=== PATIENT | female | born 1965 | race Caucasian/White ===

== ENCOUNTER → 2023-07-18 15:53 | Outpatient (REF) | payer BC, SELFPAY | LOC: RAD 15:53 | PROVIDERS: ATTENDING PHYSICIAN Physician Assistant; FAMILY PHYSICIAN Family Medicine | DX: E04.2 Nontoxic multinodular goiter (principal) | CPT/HCPCS: 76536 ==

== ENCOUNTER → 2023-07-19 07:12 | Outpatient (REF) | payer BC, SELFPAY ==
[2023-07-19 10:06] LABS: % Basophils 0.7 % (0-2); % Eosinophils 5.8 % (0-6); % Immature Granulocytes 0.3 % (0-0.5); % Lymphocytes 32.2 % (20.5-51.1); % Monocytes 7.6 % (1.7-9.3); % Neutrophils 53.4 % (42.2-75.2); Absolute Basophils 0.1 10^3/uL (0-0.2); Absolute Eosinophils 0.4 10^3/uL (0-0.7); Absolute Lymphocytes 2.4 10^3/uL (1.2-3.4); Absolute Monocytes 0.6 10^3/uL (0.1-0.6); Hemoglobin 13.4 g/dL (12.0-16.0); Mean Corp Hgb Conc. 34.4 g/dL (33.0-37.0); Mean Corpuscular Hgb 30.2 pg (27.0-31.0); Mean Platelet Volume 9.5 fL (7.4-10.4); Nucleated Red Blood Cells % 0 %; Platelet Count 317 10^3/uL (130-400); Red Blood Cell Count 4.43 10^6/uL (4.20-5.40); White Blood Cell Count 7.4 10^3/uL (4.8-10.8)
[2023-07-19 10:17] LABS: ALT (SGPT) 29 U/L (0-35); AST (SGOT) 30 U/L (14-36); Albumin 3.9 g/dl (3.5-5.0); Alkaline Phosphatase 78 U/L (38-126); Blood Urea Nitrogen 11 mg/dl (7-17); Calcium 9.3 mg/dl (8.4-10.2); Carbon Dioxide 24 mmol/L (22-30); Chloride 101 mmol/L (98-107); Glucose 207 mg/dl (70-99); HDL Cholesterol 57 mg/dl; LDL Cholesterol, Calculated 32 mg/dl; Sodium 140 mmol/L (135-145); Total Cholesterol 120 mg/dl (50-199); Total Protein 6.6 g/dl (6.3-8.2); Triglyceride 157 mg/dl (10-149); Very Low Density Lipoprotein 31 mg/dl (0-30); eGFR > 60.00
[2023-07-19 12:29] LABS: Glycohemoglobin (HgbA1c) 8.4 % (4.0-5.6)
== END ==
LOC: HWLAB 07:12
PROVIDERS: ATTENDING PHYSICIAN Physician Assistant; FAMILY PHYSICIAN Family Medicine
DX: E11.9 Type 2 diabetes mellitus without complications (principal)
CPT/HCPCS: 36415; 80053; 80061; 83036; 85025

== ENCOUNTER → 2023-10-31 06:40 | Outpatient (REF) | payer BC, SELFPAY ==
[2023-10-31 10:13] LABS: ALT (SGPT) 23 U/L (0-35); AST (SGOT) 24 U/L (14-36); Alkaline Phosphatase 90 U/L (38-126); Blood Urea Nitrogen 16 mg/dl (7-17); Calcium 9.5 mg/dl (8.4-10.2); Carbon Dioxide 26 mmol/L (22-30); Chloride 103 mmol/L (98-107); Glucose 256 mg/dl (70-99); HDL Cholesterol 57 mg/dl; LDL Cholesterol, Calculated 32 mg/dl; Potassium 4.2 mmol/L (3.5-5.1); Sodium 138 mmol/L (135-145); Total Bilirubin 0.8 mg/dl (0.2-1.3); Total Cholesterol 121 mg/dl (50-199); Total Protein 6.7 g/dl (6.3-8.2); Triglyceride 164 mg/dl (10-149); Very Low Density Lipoprotein 32 mg/dl (0-30); eGFR > 60.00
[2023-10-31 10:22] LABS: Hematocrit 39.4 % (37.0-47.0); Hemoglobin 13.8 g/dL (12.0-16.0); Mean Corpuscular Hgb 30.5 pg (27.0-31.0); Mean Platelet Volume 10.1 fL (7.4-10.4); Platelet Count 288 10^3/uL (130-400); Red Blood Cell Count 4.53 10^6/uL (4.20-5.40); Red Cell Dist. Width 12.1 % (11.5-14.5); White Blood Cell Count 7.3 10^3/uL (4.8-10.8)
[2023-10-31 12:02] LABS: Glycohemoglobin (HgbA1c) 12.8 % (4.0-5.6)
== END ==
LOC: HWLAB 06:40
PROVIDERS: ATTENDING PHYSICIAN Physician Assistant; FAMILY PHYSICIAN Family Medicine
DX: E11.65 Type 2 diabetes mellitus with hyperglycemia (principal)
CPT/HCPCS: 36415; 80053; 80061; 83036; 85027

== ENCOUNTER → 2023-12-25 17:24 | Outpatient (REF) | payer BC, SELFPAY ==
[2023-12-25 17:53] LABS: % Eosinophils 4.2 % (0-6); % Immature Granulocytes 0.3 % (0-0.5); % Lymphocytes 43.5 % (20.5-51.1); % Monocytes 7.3 % (1.7-9.3); % Neutrophils 43.7 % (42.2-75.2); Absolute Basophils 0.1 10^3/uL (0-0.2); Absolute Eosinophils 0.3 10^3/uL (0-0.7); Absolute Lymphocytes 3.2 10^3/uL (1.2-3.4); Absolute Monocytes 0.5 10^3/uL (0.1-0.6); Absolute Neutrophils 3.2 10^3/uL (1.4-6.5); Hematocrit 36.3 % (37.0-47.0); Hemoglobin 13.1 g/dL (12.0-16.0); Mean Corp Hgb Conc. 36.1 g/dL (33.0-37.0); Mean Corpuscular Hgb 30.1 pg (27.0-31.0); Mean Corpuscular Volume 83.4 fL (81.0-99.0); Mean Platelet Volume 9.1 fL (7.4-10.4); Nucleated Red Blood Cells % 0 %; Platelet Count 274 10^3/uL (130-400); Red Blood Cell Count 4.35 10^6/uL (4.20-5.40); Red Cell Dist. Width 12.4 % (11.5-14.5); White Blood Cell Count 7.4 10^3/uL (4.8-10.8)
[2023-12-25 18:03] LABS: Urine Bacteria Few (Negative); Urine Mucus Few; Urine Red Blood Cell 0-2 /HPF (0-2)
[2023-12-25 18:05] LABS: ALT (SGPT) 26 U/L (0-35); AST (SGOT) 25 U/L (14-36); Albumin 4.5 g/dl (3.5-5.0); Alkaline Phosphatase 63 U/L (38-126); Blood Urea Nitrogen 12 mg/dl (7-17); Calcium 9.4 mg/dl (8.4-10.2); Carbon Dioxide 28 mmol/L (22-30); Chloride 103 mmol/L (98-107); Glucose 220 mg/dl (70-99); Potassium 4.1 mmol/L (3.5-5.1); Sodium 139 mmol/L (135-145); Total Bilirubin 0.8 mg/dl (0.2-1.3); Total Protein 6.9 g/dl (6.3-8.2); eGFR > 60.00
[2023-12-25 18:36] LABS: TSH 1.74 uIU/ml (0.47-4.68)
[2023-12-26 10:50] LABS: Glycohemoglobin (HgbA1c) 8.4 % (4.0-5.6)
== END ==
LOC: REG 17:24
PROVIDERS: ATTENDING PHYSICIAN Student in an Organized Health Care Education/Training Program
DX: R42 Dizziness and giddiness (principal)
CPT/HCPCS: 70450; 80053; 81015; 83036; 84443; 85025; 87086

== ENCOUNTER 2024-01-13 15:58 | Outpatient (RCR) | payer BC, SELFPAY | END 2024-01-13 23:59 | disposition home or self-care (01) | LOC: RPT 15:58 | PROVIDERS: ATTENDING PHYSICIAN Otolaryngology; FAMILY PHYSICIAN Family Medicine | DX: R42 Dizziness and giddiness (principal); R26.89 Other abnormalities of gait and mobility; R26.81 Unsteadiness on feet; Z73.6 Limitation of activities due to disability | CPT/HCPCS: 97112; 97163; 97530 ==

== ENCOUNTER → 2024-01-16 06:58 | Outpatient (REF) | payer BC, SELFPAY ==
[2024-01-16 10:26] LABS: Urine Albumin Negative (Neg - Trace); Urine Bilirubin Negative (Negative); Urine Character Clear (Clear); Urine Color Yellow; Urine Glucose 2+ (Negative); Urine Ketone Negative (Negative); Urine Leukocyte 1+ (Negative); Urine Nitrite Negative (Negative); Urine Occult Blood Negative (Negative); Urine Specific Gravity 1.025 (<1.030); Urine Urobilinogen Negative (Neg - 1+)
[2024-01-16 11:24] LABS: Urine Bacteria Few (Negative); Urine Red Blood Cell 0-2 /HPF (0-2)
[2024-01-16 12:00] LABS: Vitamin B12 > 1000 pg/ml (239-931)
[2024-01-19 09:41] LABS: Copper, Serum 96.7 ug/dL (80.0-155.0)
== END ==
LOC: HWLAB 06:58
PROVIDERS: ATTENDING PHYSICIAN Student in an Organized Health Care Education/Training Program; FAMILY PHYSICIAN Family Medicine
DX: R27.0 Ataxia, unspecified (principal); R82.90 Unspecified abnormal findings in urine
CPT/HCPCS: 36415; 81003; 81015; 82525; 82607; 84425; 84446; 87086

== ENCOUNTER → 2024-01-30 07:38 | Outpatient (REF) | payer BC, SELFPAY | LOC: EMG 07:38 | PROVIDERS: ATTENDING PHYSICIAN Student in an Organized Health Care Education/Training Program | DX: R27.0 Ataxia, unspecified (principal); E11.9 Type 2 diabetes mellitus without complications; G62.9 Polyneuropathy, unspecified; R20.2 Paresthesia of skin | CPT/HCPCS: 36415; 82140; 95886; 95912 ==

== ENCOUNTER 2024-02-12 15:59 | Outpatient (RCR) | payer BC, SELFPAY | END 2024-02-12 23:59 | disposition home or self-care (01) | LOC: RPT 15:59 | PROVIDERS: ATTENDING PHYSICIAN Otolaryngology; FAMILY PHYSICIAN Family Medicine | DX: R42 Dizziness and giddiness (principal); R26.89 Other abnormalities of gait and mobility; Z73.6 Limitation of activities due to disability | CPT/HCPCS: 97110; 97112; 97530 ==

== ENCOUNTER → 2024-02-14 15:58 | Outpatient (REF) | payer BC, SELFPAY | LOC: MRI 3T 15:58 | PROVIDERS: ATTENDING PHYSICIAN Psychiatry & Neurology Neurology; FAMILY PHYSICIAN Family Medicine | DX: R27.0 Ataxia, unspecified (principal) | CPT/HCPCS: 70553; A9575 ==

== ENCOUNTER → 2024-02-27 16:14 | Outpatient (REF) | payer BC, SELFPAY | LOC: HWWDC 16:14 | PROVIDERS: ATTENDING PHYSICIAN Family Medicine | DX: Z12.31 Encounter for screening mammogram for malignant neoplasm of breast (principal) | CPT/HCPCS: 77063; 77067 ==

== ENCOUNTER 2024-03-11 16:03 | Outpatient (RCR) | payer BC, SELFPAY | END 2024-03-11 23:59 | disposition home or self-care (01) | LOC: RPT 16:03 | PROVIDERS: ATTENDING PHYSICIAN Otolaryngology; FAMILY PHYSICIAN Family Medicine | DX: R42 Dizziness and giddiness (principal); R26.89 Other abnormalities of gait and mobility; R26.81 Unsteadiness on feet; Z73.6 Limitation of activities due to disability | CPT/HCPCS: 97110; 97112; 97530 ==

== ENCOUNTER → 2024-04-08 15:48 | Outpatient (REF) | payer BC, SELFPAY | LOC: HWRCS 15:48 | PROVIDERS: ATTENDING PHYSICIAN Internal Medicine; FAMILY PHYSICIAN Family Medicine | DX: I49.3 Ventricular premature depolarization (principal); I10 Essential (primary) hypertension | CPT/HCPCS: 93306 ==

== ENCOUNTER → 2024-04-09 11:49 | Outpatient (REF) | payer BC, SELFPAY | LOC: DHSLP 11:49 | PROVIDERS: ATTENDING PHYSICIAN Psychiatry & Neurology Neurology; FAMILY PHYSICIAN Family Medicine | DX: G47.30 Sleep apnea, unspecified (principal); R06.83 Snoring | CPT/HCPCS: 95800 ==

== ENCOUNTER 2024-04-09 15:44 | Outpatient (RCR) | payer BC, SELFPAY | END 2024-04-09 23:59 | disposition home or self-care (01) | LOC: RPT 15:44 | PROVIDERS: ATTENDING PHYSICIAN Otolaryngology; FAMILY PHYSICIAN Family Medicine | DX: R42 Dizziness and giddiness (principal); R26.89 Other abnormalities of gait and mobility; R26.81 Unsteadiness on feet; Z73.6 Limitation of activities due to disability | CPT/HCPCS: 97110; 97112; 97530 ==

== ENCOUNTER → 2024-04-14 07:23 | Outpatient (REF) | payer BC, SELFPAY | LOC: DHCBC/DCA 07:23 | PROVIDERS: ATTENDING PHYSICIAN Internal Medicine; FAMILY PHYSICIAN Family Medicine | DX: I49.3 Ventricular premature depolarization (principal); I10 Essential (primary) hypertension | CPT/HCPCS: 78452; 93017; A9500; J2785 ==

== ENCOUNTER → 2024-04-18 08:28 | Outpatient (REF) | payer BC, SELFPAY | LOC: RCS 08:28 | PROVIDERS: ATTENDING PHYSICIAN Internal Medicine; FAMILY PHYSICIAN Family Medicine | DX: I49.3 Ventricular premature depolarization (principal); I10 Essential (primary) hypertension | CPT/HCPCS: 93225; 93226 ==

== ENCOUNTER → 2024-04-20 06:51 | Outpatient (REF) | payer BC, SELFPAY ==
[2024-04-20 09:48] LABS: % Basophils 0.8 % (0-2); % Immature Granulocytes 0.3 % (0-0.5); % Lymphocytes 27.7 % (20.5-51.1); % Monocytes 6.9 % (1.7-9.3); % Neutrophils 59.3 % (42.2-75.2); Absolute Basophils 0.1 10^3/uL (0-0.2); Absolute Eosinophils 0.4 10^3/uL (0-0.7); Absolute Lymphocytes 2.1 10^3/uL (1.2-3.4); Absolute Monocytes 0.5 10^3/uL (0.1-0.6); Absolute Neutrophils 4.5 10^3/uL (1.4-6.5); Hematocrit 37.5 % (37.0-47.0); Hemoglobin 13.1 g/dL (12.0-16.0); Mean Corp Hgb Conc. 34.9 g/dL (33.0-37.0); Mean Corpuscular Hgb 30.7 pg (27.0-31.0); Mean Corpuscular Volume 87.8 fL (81.0-99.0); Mean Platelet Volume 9.5 fL (7.4-10.4); Nucleated Red Blood Cells % 0 %; Platelet Count 247 10^3/uL (130-400); Red Blood Cell Count 4.27 10^6/uL (4.20-5.40); Red Cell Dist. Width 11.9 % (11.5-14.5); White Blood Cell Count 7.6 10^3/uL (4.8-10.8)
[2024-04-20 09:59] LABS: ALT (SGPT) 24 U/L (0-35); AST (SGOT) 21 U/L (14-36); Alkaline Phosphatase 80 U/L (38-126); Blood Urea Nitrogen 14 mg/dl (7-17); Calcium 8.7 mg/dl (8.4-10.2); Carbon Dioxide 27 mmol/L (22-30); Chloride 104 mmol/L (98-107); Glucose 351 mg/dl (70-99); Potassium 4.6 mmol/L (3.5-5.1); Sodium 141 mmol/L (135-145); Total Bilirubin 0.4 mg/dl (0.2-1.3); Total Protein 6.6 g/dl (6.3-8.2); eGFR > 60.00
[2024-04-20 10:49] LABS: Glycohemoglobin (HgbA1c) 8.3 % (4.0-5.6)
== END ==
LOC: HWLAB 06:51
PROVIDERS: ATTENDING PHYSICIAN Physician Assistant; FAMILY PHYSICIAN Family Medicine; REFERRING PHYSICIAN Internal Medicine
DX: E11.65 Type 2 diabetes mellitus with hyperglycemia (principal); I49.3 Ventricular premature depolarization; I10 Essential (primary) hypertension; E78.2 Mixed hyperlipidemia
CPT/HCPCS: 36415; 80053; 83036; 85025

== ENCOUNTER 2024-05-01 12:03 | Day surgery (SDC) | payer BC, SELFPAY ==
[2024-05-01] VITALS (10 sets, daily range): BP systolic 136–199; BP diastolic 63–107
--- NOTE | 2024-05-01 09:43 | HP.FOC2 ---
Focused History & Physical
Chief Complaint
HPI:
Chief Complaint: Abnormal NST
HPI / Indication for Planned Procedure:
59 y/o white female, seen by cardiology for abnormal EKG with frequent PVCs. Complains of some SANDERS and anxiety but denies CP/palps/syncope/edema. NST with reversible lateral perfusion defect, c/w ischemia, EF 55%. 48h Holter monitor w/rare
PVC/PAC/PAT.
Presents for [facility] today.
Relevant Past Medical History: COPD or Pulmonary Disease (Asthma), Diabetes, Hypertension and Other (HLD, Anxiety)
Relevant Social History: Negative
Relevant Family History: Positive for (F- , Prostate Ca, CVA, AAA, DM; B- AAA rupture; B- CVA)
Relevant Past Surgical History: Positive for (Cholecystectomy (2002), Uterine ablation, ovarian cyst removal, bladder sling, Left shoulder RTC repair (2017), Left TRSA (2019), Right TKA (2020), )
Review of Systems
Review of Pertinent Systems: All Systems Negative
Medication
See Medication form for detailed medications: No
Medication List (including Herbals & OTC):
MED LIST FROM [facility] CHART 03/31/24 O/V
alprazolam 1mg po qpm
cetirizine 10 mg tablet 10 mg PO DAILY
glipizide er 20mg po daily
One A Day multivitamin 1 tab po daily
repaglinide 2mg po meals
rosuvastatin 20 mg tablet 20 mg PO QPM
trazodone 100 mg tablet 100 mg PO HS Sleep 04/15/20
valsartan 80mg po daily
Vitamin B12 1000mcg po weekly
Vitamin D3 125mcg po daily
aspirin 81mg po daily
Daily Fiber 2gm po meals
Kupg-Fomp-Gzjtm 6000mcg po daily
Rybelsus 14mg po daily
Medications Reviewed: Yes
Allergies and Reactions
Patient has Allergies: Yes
Noted Allergies and Reactions:
Allergy/AdvReac Type Severity Reaction Status Date / Time
celecoxib [From Celebrex] Allergy Brain Fog Verified 09/20/21 16:25
lisinopril Allergy Cough Verified 09/20/21 16:25
morphine Allergy 'brain fog' Verified 09/20/21 16:25
nitrous oxide [Nitrous Oxide] Allergy difficulty Verified 09/20/21 09:00
breathing
oxycodone Allergy Brain Fog Verified 09/20/21 16:25
soy Allergy stomach Verified 09/20/21 16:25
upset
tramadol Allergy Rash Verified 09/20/21 09:00
grass,weeds,pet dander Allergy runny Uncoded 09/20/21 09:00
nose,
sneezing
Narcotics Allergy 'brain fog' Uncoded 09/20/21 16:25
steroids Allergy Rash / Uncoded 09/20/21 09:00
patient's
skin also
blistered
Pertinent Physical Exam
All Other Systems: Negative
Head/Neck: Normal
Lungs: Normal
Heart: Normal
Abdomen: Normal
Extremities: Normal and Other
Neurological: Normal
Diagnosis / Assessment
NST 04/14/24- Abnormal Lexiscan nuclear stress test with a small area of mildly reduced counts involving the lateral wall from mid to distal ventricle, however, resolves with prone imaging; small area of ischemia versus soft tissue attenuation
tissue attenuation.
Systolic function is normal. The ejection fraction is 55%.
Stress Risk is moderate risk study (1 - 3% [place] or /year) due to pharmacologic agent used.
48 hours HOLTER monitor 04/18/24- NSR, Av 74 bpm. Range 60-115 bpm.
No bradycardia.
Almost no ventricular ectopy, 27 PVCs.
Almost no atrial ectopy, 33 PACs, one atrial couplet and 3 short (3-4 beats)
runs of atrial tachycardia totally just 10 beats.
Plan / Procedure
Abnormal EKG/PVCs
abnormal NST with lateral ischemia
LHC today
aspirin 324mg prior to cath today if not already started
Anesthesia/Sedation to be done by Anesthesia Provider: No
[2024-05-01 12:54] LABS: Glucose - Point of Care 303 mg/dl (70-99)
[2024-05-01 14:11] LABS: ACT-LR - POC 221 Seconds (116-155)
[2024-05-01] MEDS: NSS 1000 IV (14:38)
--- NOTE | 2024-05-01 15:13 | ITS.CL.CATH ---
Senior Manager Creative Services - Catheterization
Cardiac Catheterization
Procedure Report:
CARDIAC CATHETERIZATION REPORT
Date of Procedure: 04/21/2024
Referring: Jeramy Hamm MD
Indication: Frequent PVCs and diabetic with mildly abnormal stress test
�
HEMODYNAMIC DATA
AO: 146/86
LV: 146/24
�
LEFT VENTRICULOGRAPHY: Small focal area of anterolateral hypokinesis with otherwise normal left ventricular wall motion with EF 58%
�
CORONARY ANGIOGRAPHY
Dominance: Right
Left Main: Normal
LAD: 70% mid LAD stenosis distal to D1 with 40% mid LAD stenosis just distal to D2. The remainder of the LAD system has mild luminal disease
Circumflex: The severely calcified circumflex is totally occluded just distal to the takeoff of a twig like OM1 and OM 2 vessels. A large OM 3 fills retrograde via left to left collaterals. A small LPL1, medium to large LPL2 and small to medium
sized LPL3 all fill via right to left collaterals
RCA: Moderate to severe calcification with 20% proximal and focal 70% mid stenoses. There is 60% distal RCA stenosis just proximal to the origin of the large healthy appearing RPDA. The RCA continues on to give rise to a large first right
posterolateral branch and a small terminal second right posterolateral branch
FloWire assessment: At the conclusion of the diagnostic study the patient underwent FloWire assessment of the LAD disease. Heparin was used for anticoagulation. A 5 [place] JL 4 guide catheter was used. A Giga[employer]ix pressure wire was advanced into
the mid to distal LAD. iFR measurements were 0.86, 0.85, and 0.86. These measurements are all consistent with flow-limiting disease. Pullback demonstrated the drop in Pd/Pa to be at the site of the 70% mid LAD stenosis
�
Closure Device: None-the procedure was performed via the right radial artery. The Donta's test was normal prior to the procedure.
�
Radiation (mGy): 377
DAP (cm2.Gy): 24.5
Fluoroscopy time: 4.3 minutes
�
CONCLUSIONS
1:�Systemic hypertension
2:�Small focal area of anterolateral hypokinesis with EF 58%
3. Severe triple-vessel CAD as described
4. Patient was referred for CABG with optimal revascularization to include grafts to the LAD, large OM 3, LPL 2 if able, and RPDA
�
�
Copy to: Edwin Manjarrez MD, PhD, Cullen Vazquez,
�
Jovon Brown MD, FACC, [facility]
[2024-05-01] MEDS: LOPRESSOR 25 MG PO (15:29)
[2024-05-01] MEDS: PRANDIN 0.5 MG PO (15:29)
[2024-05-01] MEDS: GLUCOTROL 15 MG PO (15:29)
== END 2024-05-01 17:19 | disposition home or self-care (01) ==
LOC: CATH 12:03
PROVIDERS: ATTENDING PHYSICIAN Internal Medicine Cardiovascular Disease; FAMILY PHYSICIAN Family Medicine; OTHER PHYSICIAN Internal Medicine
DX: I25.10 Atherosclerotic heart disease of native coronary artery without angina pectoris (principal); R94.39 Abnormal result of other cardiovascular function study; I49.3 Ventricular premature depolarization; I10 Essential (primary) hypertension; E78.5 Hyperlipidemia, unspecified; E11.9 Type 2 diabetes mellitus without complications; J44.9 Chronic obstructive pulmonary disease, unspecified; Z82.3 Family history of stroke; Z79.84 Long term (current) use of oral hypoglycemic drugs; Z79.82 Long term (current) use of aspirin
CPT/HCPCS: 93799; C1894; C1769; 82962; 85347; 93458; Q9967

== ENCOUNTER → 2024-05-13 08:06 | Outpatient (REF) | payer BC, SELFPAY | LOC: HWRAD 08:06 | PROVIDERS: ATTENDING PHYSICIAN Thoracic Surgery (Cardiothoracic Vascular Surgery); FAMILY PHYSICIAN Family Medicine | DX: I25.10 Atherosclerotic heart disease of native coronary artery without angina pectoris (principal); Z01.818 Encounter for other preprocedural examination | CPT/HCPCS: 71250 ==

== ENCOUNTER 2024-05-28 04:57 | Inpatient (IN) | payer BC, SELFPAY ==
[2024-05-26 08:27] VITALS: BMI 37.9
[2024-05-26 09:08] LABS: % Basophils 0.9 % (0-2); % Immature Granulocytes 0.3 % (0-0.5); % Monocytes 6.9 % (1.7-9.3); % Neutrophils 56.9 % (42.2-75.2); Absolute Basophils 0.1 10^3/uL (0-0.2); Absolute Eosinophils 0.4 10^3/uL (0-0.7); Absolute Lymphocytes 1.9 10^3/uL (1.2-3.4); Absolute Monocytes 0.5 10^3/uL (0.1-0.6); Absolute Neutrophils 3.7 10^3/uL (1.4-6.5); Hematocrit 38.9 % (37.0-47.0); Hemoglobin 13.9 g/dL (12.0-16.0); Mean Corp Hgb Conc. 35.7 g/dL (33.0-37.0); Mean Corpuscular Hgb 30.7 pg (27.0-31.0); Mean Corpuscular Volume 85.9 fL (81.0-99.0); Mean Platelet Volume 9.7 fL (7.4-10.4); Nucleated Red Blood Cells % 0 %; Platelet Count 265 10^3/uL (130-400); Red Blood Cell Count 4.53 10^6/uL (4.20-5.40); Red Cell Dist. Width 11.9 % (11.5-14.5); White Blood Cell Count 6.5 10^3/uL (4.8-10.8)
[2024-05-26 09:15] LABS: INR 0.96
[2024-05-26 09:16] LABS: APTT 24.6 Sec (23.4-35.0)
[2024-05-26 09:21] LABS: ALT (SGPT) 27 U/L (0-35); AST (SGOT) 22 U/L (14-36); Albumin 4.3 g/dl (3.5-5.0); Alkaline Phosphatase 88 U/L (38-126); Blood Urea Nitrogen 16 mg/dl (7-17); Calcium 9.1 mg/dl (8.4-10.2); Carbon Dioxide 27 mmol/L (22-30); Chloride 102 mmol/L (98-107); Direct Bilirubin 0.2 mg/dl (0.0-0.4); Estimated Creatinine Clearance 85 ml/min; Glucose 352 mg/dl (70-99); Potassium 4.5 mmol/L (3.5-5.1); Sodium 137 mmol/L (135-145); Total Bilirubin 0.9 mg/dl (0.2-1.3); Total Protein 6.8 g/dl (6.3-8.2); eGFR > 60.00
[2024-05-26 09:44] LABS: Urine Albumin Negative (Neg - Trace); Urine Bilirubin Negative (Negative); Urine Character Clear (Clear); Urine Color Yellow; Urine Glucose 3+ (Negative); Urine Ketone 1+ (Negative); Urine Leukocyte Negative (Negative); Urine Nitrite Negative (Negative); Urine Occult Blood Negative (Negative); Urine Specific Gravity 1.015 (<1.030); Urine Urobilinogen Negative (Neg - 1+)
[2024-05-26 10:21] LABS: Glycohemoglobin (HgbA1c) 10.6 % (4.0-5.6)
--- NOTE | 2024-05-26 10:50 | CM ---
Chart reviewed. Met with the patient in PAT. 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 Patient is going to her sisters house
after surgery until her son comes from [place] on June 04 and then she will return home. Patient's sisters house is a [address]. Reviewed preoperative and postoperative instructions and restrictions, along with showering guidelines. Gave
patient 2 soaps. Patient is agreeable to a home visit by CT Transitional RN. Plan is for the patient to go to her sister's house [address], [place] with CT Transitional RN.
[2024-05-28] VITALS (11 sets, daily range): BP systolic 95–153; BP diastolic 54–79; BMI 37.5
[2024-05-28] MEDS: MAGNESIUM OXIDE 500 MG PO (05:46)
[2024-05-28] MEDS: BACTROBAN 2% OINTMENT 1 APPLIC NASAL ×2 (05:46→19:40)
[2024-05-28] MEDS: PROTONIX 40 MG PO (05:46)
--- NOTE | 2024-05-28 06:01 | W.PN.UPDATE ---
Update Note
Progress Note Update
-preop BB is contraindicated d/t hx of bradycardia after taking Toprol (was discontinued).
[2024-05-28 06:02] LABS: Glucose - Point of Care 331 mg/dl (70-99)
--- NOTE | 2024-05-28 06:05 | PTCARENOTE ---
[facility], clipped, CHG wipes, 2 home showers confirmed. Home medication list reviewed. Admission questions completed. Pre-Op checklist completed. Confirmed all removable items removed. No dentures. Pre OR medications given (See MAR).
Pt states last visit Lopressor adverse reaction with low heart rate. Pt refused Lopressor. Noted new allergy in [employer].
[2024-05-28 07:38] LABS: Urine Albumin Negative (Neg - Trace); Urine Bilirubin Negative (Negative); Urine Character Clear (Clear); Urine Color Yellow; Urine Glucose 3+ (Negative); Urine Ketone 1+ (Negative); Urine Leukocyte Negative (Negative); Urine Nitrite Negative (Negative); Urine Occult Blood Negative (Negative); Urine Urobilinogen Negative (Neg - 1+)
[2024-05-28 07:41] LABS: ACT+ - POC 115 Seconds (82-134)
[2024-05-28 09:00] LABS: B.E. - POC -3.7 mmol/L; Glucose - POC 382 mg/dl (70-99); HCO3 - POC 22 mmol/L (21-28); Hematocrit - POC 35 % PCV (37-47); Hemodilution- POC Yes; Hemoglobin Calculated - POC 11.8; Ionized Calcium - POC 1.14 mmol/L (1.15-1.33); O2 Saturation %Calculated-POC 99.4 % (94-98); PCO2 - POC 43 mmHg (35-48); PO2 - POC 173 mmHg (83-108); POC Comment PRE; Sodium - POC 137 mmol/L (136-145); Specimen Type - POC Arterial; pH - POC 7.32 (7.35-7.45)
--- NOTE | 2024-05-28 09:34 | CM ---
pt in OR today, cm to follow.
[2024-05-28 10:25] LABS: ACT+ - POC 580 Seconds (82-134)
[2024-05-28 10:53] LABS: Glucose - POC 374 mg/dl (70-99); HCO3 - POC 22 mmol/L (21-28); Hematocrit - POC 36 % PCV (37-47); Hemodilution- POC No; Hemoglobin Calculated - POC 12.4; Ionized Calcium - POC 1.17 mmol/L (1.15-1.33); O2 Saturation %Calculated-POC 98.8 % (94-98); PCO2 - POC 50 mmHg (35-48); PO2 - POC 143 mmHg (83-108); POC Comment PRE; Potassium - POC 3.8 mmol/L (3.5-5.1); Sodium - POC 139 mmol/L (136-145); Specimen Type - POC Arterial; pH - POC 7.26 (7.35-7.45)
[2024-05-28 11:03] LABS: ACT+ - POC 517 Seconds (82-134)
[2024-05-28 11:29] LABS: B.E. - POC 0.6 mmol/L; Glucose - POC 309 mg/dl (70-99); HCO3 - POC 27 mmol/L (21-28); Hematocrit - POC 29 % PCV (37-47); Hemodilution- POC Yes; Hemoglobin Calculated - POC 9.8; Ionized Calcium - POC 1.05 mmol/L (1.15-1.33); O2 Saturation %Calculated-POC 99.9 % (94-98); PCO2 - POC 47 mmHg (35-48); PO2 - POC 265 mmHg (83-108); POC Comment CPB; Potassium - POC 4.2 mmol/L (3.5-5.1); Sodium - POC 140 mmol/L (136-145); Specimen Type - POC Arterial; pH - POC 7.36 (7.35-7.45)
[2024-05-28 11:38] LABS: ACT+ - POC 471 Seconds (82-134)
[2024-05-28 11:56] LABS: B.E. - POC -2.1 mmol/L; Glucose - POC 325 mg/dl (70-99); HCO3 - POC 24 mmol/L (21-28); Hematocrit - POC 32 % PCV (37-47); Hemodilution- POC Yes; Hemoglobin Calculated - POC 10.9; Ionized Calcium - POC 1.09 mmol/L (1.15-1.33); O2 Saturation %Calculated-POC 99.8 % (94-98); PCO2 - POC 44 mmHg (35-48); PO2 - POC 260 mmHg (83-108); POC Comment CPB; Potassium - POC 3.5 mmol/L (3.5-5.1); Sodium - POC 141 mmol/L (136-145); Specimen Type - POC Arterial; pH - POC 7.34 (7.35-7.45)
[2024-05-28 12:08] LABS: ACT+ - POC 549 Seconds (82-134)
[2024-05-28 12:52] LABS: B.E. - POC -3.3 mmol/L; Glucose - POC 304 mg/dl (70-99); HCO3 - POC 23 mmol/L (21-28); Hematocrit - POC 32 % PCV (37-47); Hemodilution- POC Yes; Hemoglobin Calculated - POC 10.7; O2 Saturation %Calculated-POC 99.1 % (94-98); PCO2 - POC 46 mmHg (35-48); PO2 - POC 148 mmHg (83-108); POC Comment REWARM; Potassium - POC 3.5 mmol/L (3.5-5.1); Sodium - POC 142 mmol/L (136-145); Specimen Type - POC Arterial; pH - POC 7.31 (7.35-7.45)
[2024-05-28 12:58] LABS: ACT+ - POC 115 Seconds (82-134)
[2024-05-28 13:21] LABS: B.E. - POC -0.1 mmol/L; Glucose - POC 212 mg/dl (70-99); HCO3 - POC 25 mmol/L (21-28); Hematocrit - POC 30 % PCV (37-47); Hemodilution- POC Yes; Hemoglobin Calculated - POC 10.1; Ionized Calcium - POC 1.24 mmol/L (1.15-1.33); O2 Saturation %Calculated-POC 96.5 % (94-98); PCO2 - POC 43 mmHg (35-48); PO2 - POC 88 mmHg (83-108); POC Comment POST; Potassium - POC 2.9 mmol/L (3.5-5.1); Sodium - POC 145 mmol/L (136-145); Specimen Type - POC Arterial; pH - POC 7.38 (7.35-7.45)
--- NOTE | 2024-05-28 13:33 | W.CVOR.SURPR ---
CVOR Surgeon Immed Pre Op
-
I have examined this patient prior to performance of the scheduled procedure.
The patient's condition is unchanged from the time of the dictated/written History and
Physical and the patient is able to undergo the scheduled procedure.
--- NOTE | 2024-05-28 13:34 | W.IMMPOSTOP ---
Addendum entered and electronically signed by Julio Albrecht MD 05/28/24 14:33:
[id number]
Original Note:
Surgical Immed Post Op Note
-
CARDIAC SURGERY OPERATIVE NOTE:
Preoperative Dx:
MVCAD
Postoperative Dx:
Same
Procedures:
1) Median sternotomy
2) Takedown of JODI (narrow pedicle)
3) Endoscopic harvest/prep of L RA
4) Endoscopic harvest/prep of RLE GSV
5) CABG x 3 (JODI to LAD, L RA to OM, GSV to RPDA)
Surgeon:
Julio Albrecht M.D.
Assistants:
Agustin Patel P.A.; assistant professor of chemistry throughout
Daija Panchal, P.A.; endoscopic harvest/prep of L RA; [id number] closure
Manuel Johnson, P.A.; endoscopic harvest/prep of RLE GSV
Anesthesia:
Teddy Lehman M.D. and Zeb Emanuel.N.A.
Perfusion:
Marifer Tobar C.C.P.; XC: 70min, CPB: 115min
Findings:
JODI was healthy conduit w/ thin vuong, ELD 2.00mm w/ very brisk blood flow
L RA was good conduit w/ ELD 3.25mm w/ minor atheromatous disease
GSV was good conduit w/ ELD 3.50mm
LAD was visible on the epicardial surface, ELD 2.75mm w/ slightly thin, but normal vuong at midpoint anastomosis
OM was visible on the epicardial surface, ELD 3.00mm w/ slightly thin, but normal, vuong
PDA was visible on the epicardial surface, ELD 2.75mm w/ slightly thin, but normal vuong
Excellent flow in all grafts on intraoperative transit-time U/S flow probe assessment
BISHOP: LVEF: 65-70% w/o RWMA, normal RV, mild MR, unxcmth-mm-wedc TR
Complications:
None
Transfusions:
None
Implants:
CT x 4 (B/L pleural, inferior mediastinal, superior mediastinal)
Sternal wires x 7
Sternal 'X' plate w/ 8 - 12mm screws
Sternal 'Square' plate w/ 4 - 12mm screws
Condition:
73 isoelectric NSR; 108/60; CVP 18.
GTTS: levophed 12, nicardipine 1, precedex 0.5, insulin 2
Stable/guarded to CVICU
--- NOTE | 2024-05-28 14:10 | W.PN.UPDATE ---
Update Note
Progress Note Update
59 year old female was electively admitted 05/28 for CABG d/t 3VCAD
IV fluids: 1500
U.O.:� 575
Blood:� none
Wires:� none
Gtts:� Levophed @ 12; Cardene @ 1; Precedex @ 0.5; Insulin
Sedatives:� Precedex
�
NEURO: sedated on Precedex, pupils +2mm B/L
RESP: #7OT @24cm> 600/60%/28/12. Lungs clear B/L. 2 mediastinal (XXcc on arrival) and R/L pleural (XXcc on arrival) chest tubes to -20cm suction. Sanguineous drainage
CV: RRR +S1, S2, no S3, no�rub, no murmur. Dressing to median sternotomy. RIJ w/o [place]
ABD: obese, round, soft, no BS
EXT: no edema, +2/4 DP pulses B/L, no femoral bruit, RLE and LUE PATRICIA wraps intact; right radial A-line intact
: Rhoades with clear yellow urine
�
A/P: POD #0 s/p CABG x 3 BRAVO-LAD; Radial-OM; SVG-RPDA
BISHOP: EF�
- wean and extubate
- keep SBP<130, wean Lovophed as able
# CAD
- will require ASA/Plavix, statin, beta-tracey
# HTN
- resume home Valsartan as BP permits
�
# acute surgical blood loss anemia-expected
- trend CBC
�
# T2DM (A1C 10.6)
- insulin infusion x 48h
- Diabetes SURVEILLANCE OPERATOR consult
- on Glipizide, Repaglinide, Rebelsus
- resume Rebelsus when able
�
# Hyperlipidemia
- resume�Crestor 20mg HS
# Obesity (BMI 37.5)
- diabetic, carb controlled diet
- increase caloric expenditure
[2024-05-28 14:11] LABS: Glucose - Point of Care 153 mg/dl (70-99)
[2024-05-28 14:23] LABS: Hematocrit 33.1 % (37.0-47.0); Hemoglobin 11.7 g/dL (12.0-16.0); Platelet Count 223 10^3/uL (130-400)
[2024-05-28 14:24] LABS: B.E. -0.5 mmol/L; HCO3 24.9 mmol/L (21-28); O2 Saturation % 99.2 % (94-98); PCO2 43 mmHg (32-35); PO2 125 mmHg (83-108); Potassium 3.4 mMOL/L (3.5-5.1); Sodium 139 mMOL/L (136-145); pH 7.37 (7.35-7.45)
[2024-05-28 14:28] LABS: O2 Therapy vent
[2024-05-28] MEDS: ANCEF 10 IV ×2 (14:29)
[2024-05-28] MEDS: NSS 500 IV (14:29)
[2024-05-28 14:31] LABS: INR 1.29; PT 16.6 Sec (11.4-14.6)
[2024-05-28] MEDS: KCL 50 IV ×2 (14:32→16:23)
--- NOTE | 2024-05-28 14:37 | W.PN.UPDATE ---
Addendum entered and electronically signed by Christopher Batista MD 05/28/24 14:41:
This note has been entered in the wrong patient.
Please disregard.
Original Note:
Update Note
Progress Note Update
Multiple discussions with interventional radiology regarding this patient.
Echocardiogram noted, hyperdynamic, normal LVEF. RV function is normal but it is dilated. Moderate pulmonary hypertension.
Heart rate has improved down to 84.
Patient is sleepy but arousable. Has been getting narcotics for pain.
Pleuritic type chest pain much better, respiratory effort improved. Clear lung exam without bronchospasm.
Given improvement on hemodynamics, heart rate and clinical situation we have opted to follow her clinically on heparin drip.
If there is any clinical deterioration then we may consider catheter directed lysis.
Dr. Montes updated daughter and son earlier today.
-
Continue end-tidal CO2 monitoring
-
Continue oxygen supplementation. Nonrebreather mask has been discontinued.
-
Additional critical care time 35 minutes
[2024-05-28 14:39] LABS: Blood Urea Nitrogen 16 mg/dl (7-17); Estimated Creatinine Clearance 97 ml/min; Glucose 154 mg/dl (70-99); Magnesium 3.2 mg/dl (1.6-2.3)
--- NOTE | 2024-05-28 14:42 | CON.INTV ---
Consultation
Consultation Request
Date/Time Consultation Requested: 05/28/2024
Date/Time Consultation Performed: 05/28/2024
Requesting Provider: Dr. Albrecht
Performing Provider: Dr. Christopher Montes
Reason for Consultation: Status post coronary artery bypass
Medical History
-
History of Present Illness:
59-year-old woman with past medical history noted. Electively admitted for coronary artery bypass. Surgery underwent without complication on 05/28/2024.
Currently in the critical care unit, intubated on mechanical ventilation. Appears comfortable.
Chest tube in place with minimal bloody drainage. No airleak.
ECW records reviewed.
Past Medical History
Past Medical History: Other (See assessment and plan)
Social History
Tobacco: Non-smoker
Alcohol: None
Personal:
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
Family History
Family History: Unable to Obtain
Allergies / Home Medications
Allergies
Allergy/AdvReac Type Severity Reaction Status Date / Time
cat dander Allergy Rhinitis, Verified 05/22/24 08:54
coughing
celecoxib [From Celebrex] Allergy Brain Fog Verified 05/22/24 08:54
lisinopril Allergy Cough Verified 05/22/24 08:54
morphine Allergy 'brain Verified 05/22/24 08:54
fog'
Hallucinations
nitrous oxide [Nitrous Oxide] Allergy difficulty Verified 05/22/24 08:54
breathing-
Brain Fog
oxycodone Allergy Brain Fog- Verified 05/22/24 08:54
Hallucinations
pollen extracts Allergy Rhinitis, Verified 05/22/24 08:54
coughing
soy Allergy stomach Verified 05/22/24 08:54
upset
tramadol Allergy Rash Verified 05/22/24 08:54
metoprolol [From Lopressor] AdvReac Intermediate Unknown Verified 05/28/24 05:52
Narcotics Allergy 'brain fog' Uncoded 05/22/24 08:54
steroids Allergy Rash / Uncoded 05/22/24 08:54
patient's
skin also
blistered
Home Medications
�Medication �Instructions �Recorded �Confirmed �Last Taken �Type
rosuvastatin 20 mg tablet 20 mg PO QPM High cholesterol 01/12/20 05/28/24 05/27/24 21:00 History
glipizide 5 mg tablet 15 mg PO DAILY Diabetes 02/03/20 05/01/24 05/27/24 07:00 History
20 mg
trazodone 100 mg tablet 100 mg PO HS Sleep 04/15/20 05/28/24 05/27/24 21:00 History
cyanocobalamin (vitamin B-12) 1,000 mcg PO MO Supplement 01/30/21 05/28/24 05/21/24 08:00 History
1,000 mcg tablet
biotin 10,000 mcg capsule 10,000 mcg PO DAILY Supplement 08/25/21 05/22/24 04/30/24 08:00 History
cetirizine 10 mg tablet 10 mg PO DAILY Allergies 08/25/21 05/28/24 05/27/24 07:00 History
cholecalciferol (vitamin D3) 25 3,000 units PO DAILY Supplement 08/25/21 05/28/24 05/21/24 08:00 History
mcg (1,000 unit) tablet
xfcmprqz-lhml-aoce 8 mg-folic 400 1 ea PO DAILY Supplement 08/25/21 05/28/24 05/21/24 08:00 History
mcg-K 50 mcg-lutein 300 mcg tablet
(Centrum Silver Women)
repaglinide 0.5 mg tablet 0.5 mg PO MEALS Diabetes 08/25/21 05/28/24 05/27/24 17:30 History
omega-3s 980 mg-dha 253 mg-epa 647 1 ea PO Q48H Supplement ##0 09/21/21 05/28/24 05/21/24 07:00 Rx
mg-fish oil capsule,delayed release
alprazolam 1 mg tablet 1 mg PO HS 05/01/24 05/28/24 05/26/24 History
1 mg
biotin 10,000 mcg chewable tablet 6,000 mcg PO DAILY 05/01/24 05/28/24 05/21/24 08:00 History
(Hair, Skin and Nails (biotin))
lancets #100 ea 05/01/24 Unknown Rx
melatonin 10 mg-thean 1 tab PO HS 05/01/24 05/28/24 05/27/24 21:00 History
[id number] kpgc-buif-rrv
tablet,immed-ext rel (Sleep3)
nitroglycerin 0.4 mg sublingual 0.4 mg sublingual [id number] PRN 05/01/24 05/28/24 Unknown Rx
tablet chest pain #25 tabs
psyllium husk 0.4 gram capsule 0.4 g PO AC 05/01/24 05/28/24 05/21/24 08:00 History
(Daily Fiber)
valsartan 80 mg tablet 80 mg PO DAILY 05/01/24 05/28/24 05/26/24 08:00 History
semaglutide 14 mg tablet (Rybelsus) 14 mg PO DAILY 05/22/24 05/28/24 05/21/24 08:00 History
Review of Systems
-
Unable to Obtain full review of systems at this time due to: Patient Intubation
Vitals / Labs / Diagnostic Testing
Vital Signs
Temp Pulse Resp BP Pulse Ox
97.0 F 73 14 137/73 96
05/28/24 14:14 05/28/24 05:57 05/28/24 14:14 05/28/24 05:07 05/28/24 14:41
Lab Data
05/28/24 14:09
Laboratory Results
05/28/24
14:09
PT 16.6 H
INR 1.29
APTT 24.0
pH 7.37
pCO2 43 H
pO2 125 H
HCO3 24.9
O2 Delivery Level vent
Microbiology
05/26/24 08:39 Nose MRSA Screen - Final
No Methicillin Resistant Staphylococcus aureus isolated.
Diagnostic Testing:
Physical Exam
-
HEENT: Normocephalic
Cardiovascular: S1/S2
Respiratory: Non-Labored Respirations and Other (Chest tube in place without air leak or excessive drainage.)
GI: Soft and Non Distended
Neurology: Other (Sedated, mechanical ventilation.)
Skin: Warm
General: Comfortable
Assessment
-
59-year-old woman with history of coronary artery disease. Electively admitted for revascularization. Underwent coronary artery bypass 05/28/[address] Albrecht. We were consulted for postoperative ICU management
Status post coronary artery bypass 05/28/[address] Albrecht
Postoperative mechanical ventilation
Postoperative anemia
Condition present prior admission:
Coronary artery disease-preserved ejection fraction. Multivessel coronary artery disease on catheterization 05/01/2024
Hypertension
Type 2 diabetes
Hyperlipidemia
Obese
? Asthma
Osteoarthritis
Allergic rhinitis
Assessment and plan:
She is doing well postop-currently on mechanical ventilation and appears comfortable.
ABG reviewed: Adequate oxygenation and ventilation per
Continue SIMV mode with no change
Spontaneous breathing trial per protocol once sedation wears off.
Anemia noted-no evidence of acute bleeding
Follow H&H serially
Hemodynamics -acceptable, on 8 mics Levophed. Wean off as able
Arterial line in place.
Normal renal function.
Adequate urinary output, continue to follow.
Chest tube with no excessive drainage-no air leak.
Chest x-ray reviewed: With no pneumothorax or fluid collections.
Remain nothing by mouth
Head of the bed elevation
Glycemic control per protocol
DVT prophylaxis when safe from the surgical perspective.
Critical care statement: A total of 31 minutes of critical care time was provided for this patient today. This includes management of unstable vital signs, evaluation of the patient at bedside, reviewing the patient's pertinent medical records
including ventilator settings, arterial blood gases, radiographs, microbiology, laboratory evaluations and discussion with primary team, critical care nursing, and respiratory therapy.
[2024-05-28] MEDS: LEVOPHED 250 IV ×2 (14:59→23:16)
[2024-05-28] MEDS: OFIRMEV 100 IV (15:00)
[2024-05-28] MEDS: NOVOLOG FLEXPEN SC ×2 (15:02→17:32)
[2024-05-28] MEDS: TYLENOL PO (15:02)
[2024-05-28 15:15] LABS: Glucose - Point of Care 152 mg/dl (70-99)
[2024-05-28] MEDS: VERSED 0.5 MG IV ×2 (15:23→16:22)
[2024-05-28] MEDS: ZOFRAN 4 MG IV (15:24)
--- NOTE | 2024-05-28 15:38 | PTCARENOTE ---
rec'd pt this shift mechanically ventilated and sedated. Pt with Rt IJ crodis on Cardene at 1mg/hr, Levo at 12 mcg/min, Insulin and Precedex. Pt with CT X 4, edmondson catheter to gravity drainage. Levo being weaned to keep MAP >65 amd SBP <130. Bear
hugger applied for temp 96.8. Labs sent and replaced as per protocol. CXR done. Pt able to nod head and move all extremities spontanously and to command. Pt NSR on monitor. See worklist for VS/I and O and assessments.
[2024-05-28 16:04] LABS: Glucose - Point of Care 168 mg/dl (70-99)
--- NOTE | 2024-05-28 16:30 | PTCARENOTE ---
Pts family at bedside, updated them on patient status and plan of care. Pt placed on CPAP 5 PS 7 .40% at this time. Pulse ox 95%, TV 350-400, RR 18-20. No resp distress noted.
[2024-05-28] MEDS: PACERONE PO (16:40)
[2024-05-28 16:48] LABS: Glucose - Point of Care 175 mg/dl (70-99)
[2024-05-28 16:57] LABS: B.E. 1.3 mmol/L; HCO3 26.6 mmol/L (21-28); O2 Saturation % 99.6 % (94-98); PCO2 44 mmHg (32-35); PO2 105 mmHg (83-108); pH 7.39 (7.35-7.45)
--- NOTE | 2024-05-28 17:18 | PTCARENOTE ---
ABG obtained and pt extubated to 6l n/coxygen. Pulse ox 97%
--- NOTE | 2024-05-28 17:40 | RESPNOTE ---
17:10, pt extubated to 6L, tolerating well
[2024-05-28] MEDS: NEURONTIN PO ×2 (17:56→22:29)
[2024-05-28] MEDS: TYLENOL 650 MG PO (17:59)
[2024-05-28] MEDS: CRESTOR 20 MG PO (18:00)
[2024-05-28 18:22] LABS: Glucose - Point of Care 194 mg/dl (70-99)
[2024-05-28 18:26] LABS: Hematocrit 34.4 % (37.0-47.0); Platelet Count 244 10^3/uL (130-400)
[2024-05-28] MEDS: DILAUDID 0.5 MG IV ×2 (18:26→21:55)
[2024-05-28] MEDS: TORADOL 15 MG IV (18:42)
--- NOTE | 2024-05-28 18:58 | W.PN.CD ---
Today's Communication / Plan
-
Continue current postop day #0 care.
Wean vasopressors when able.
Impression / Plan
-
Primary coiled coil inspector Dr. Alok Denise
CAD status post CABG x 3 BRAVO-LAD; Radial-OM; SVG-RPDA--05/28/24
-Currently intubated on 12 of Levophed
-Resume aspirin and Plavix when able
-Continue statin
-Beta-tracey when able
Hypertension chronic currently on vasopressor support agents on hold
-Typically on valsartan 80 mg a day.
Hyperlipidemia
-Continue chronic statin therapy
Diabetes 2
-Currently on insulin drip
Prolonged QT interval:
-Avoid additional agents that would prolong QT.
-Monitor on telemetry
-EKG in a.m.
Morbid obesity
Asthma
Physical Exam
Vital Signs/Labs
Vital Signs
Temp Pulse Resp BP Pulse Ox
98.9 F 90 22 137/73 95
05/28/24 18:02 05/28/24 18:00 05/28/24 18:02 05/28/24 05:07 05/28/24 18:02
05/27/24 05/28/24 05/29/24
06:59 06:59 06:59
Actual Weight 100.1 kg 99.1 kg
05/28/24 18:14
05/28/24 14:09
PT 16.6 Sec (11.4-14.6) H 05/28/24 14:09
INR 1.29 05/28/24 14:09
APTT 24.0 Sec (23.4-35.0) 05/28/24 14:09
Magnesium 3.2 mg/dl (1.6-2.3) H 05/28/24 14:09
Physical Exam
Constitutional: Other (Intubated and sedated)
Cardiovascular: Rhythm & rate is regular, Pedal edema is absent, JVD pressure is normal, Systolic murmur absent and Diastolic murmur absent
Respiratory: Respiratory effort normal, Lungs clear to auscul., Wheeze Absent, Crackles Absent and Rhonchi Absent
Neuro/Psych: AO x 3
Data Reviewed
-
Date of Service: May 28, 2024
EKG: Other (Sinus with prolonged QT)
[2024-05-28 19:06] LABS: Glucose - Point of Care 201 mg/dl (70-99)
--- NOTE | 2024-05-28 19:16 | PTCARENOTE ---
Received pt from [facility]. Walking rounds completed. Pt on Levo, Cardene, and insulin. Pt drowsy, oriented X 4. No neuro deficits noted. NSR on monitor. HR 90, B/P 110/59. R radial A-line zeroed and calibrated. DP and PT pulses found with doppler,
bilateral UE pulses weak on palpation. Trace generalized edema noted. R IJ cordis intact, no redness or edema noted. Lungs clear, diminished throughout. POX 95% on 4L. Meds X2, L & R pleural C/T draining serosangious fluid WNL. C/T connected to
suction, orange indicators in windows, no leak, tidaling or crepitus noted. Rhoades intact, draining clear yellow fluid WNL. Hypoactive BS. abdomen rounded, soft, non-tender to touch. Sternal incision, Aquacel C/D/I, C/T dressing C/D/I, LUE lydia
bandage intact, RLE lydia bandage in place. 20g PVA R hand intact. no redness or edema noted. Discussed pain management with patient and plan of care. Pt agrees with plan. Will continue to monitor pt needs.
[2024-05-28] MEDS: ANCEF 5 IV (19:27)
[2024-05-28] MEDS: LOW STRENGTH ASPIRIN 81 MG PO (19:41)
[2024-05-28] MEDS: SENOKOT-S 1 TABLET PO (19:41)
[2024-05-28 20:05] LABS: Glucose - Point of Care 177 mg/dl (70-99)
[2024-05-28] MEDS: NOVOLIN R INSULIN INFUSION 100 IV (21:09)
[2024-05-28] MEDS: TYLENOL 1000 MG PO (21:48)
[2024-05-28 22:00] LABS: Glucose - Point of Care 156 mg/dl (70-99)
[2024-05-28] MEDS: MUCINEX 600 MG PO (22:20)
[2024-05-28] MEDS: LR 250 ML IV (23:00)
--- NOTE | 2024-05-28 23:18 | PTCARENOTE ---
VSS. NSR on monitor with occasional PAC or PVC. HR 79, B/P 95/50 (65). Lactated ringer 250 bolus given. Pt resting in bed. Will continue to monitor pt needs.
[2024-05-29] VITALS (35 sets, daily range): BP systolic 83–127; BP diastolic 50–80; PULSE 90; O2SAT 94–96; BMI 39.4
[2024-05-29 00:05] LABS: Glucose - Point of Care 186 mg/dl (70-99)
[2024-05-29] MEDS: TORADOL 15 MG IV ×2 (00:20→07:01)
[2024-05-29 01:06] LABS: Glucose - Point of Care 162 mg/dl (70-99)
[2024-05-29 02:08] LABS: Glucose - Point of Care 148 mg/dl (70-99)
[2024-05-29] MEDS: LR 250 ML IV (02:10)
[2024-05-29] MEDS: NSS 500 IV (03:01)
[2024-05-29] MEDS: DILAUDID 0.5 MG IV (03:02)
[2024-05-29 03:15] LABS: Glucose - Point of Care 132 mg/dl (70-99)
[2024-05-29 03:33] LABS: Hematocrit 32.1 % (37.0-47.0); Mean Corp Hgb Conc. 34.3 g/dL (33.0-37.0); Mean Corpuscular Hgb 30.3 pg (27.0-31.0); Mean Corpuscular Volume 88.4 fL (81.0-99.0); Mean Platelet Volume 9.7 fL (7.4-10.4); Platelet Count 233 10^3/uL (130-400); Red Blood Cell Count 3.63 10^6/uL (4.20-5.40); Red Cell Dist. Width 12.2 % (11.5-14.5); White Blood Cell Count 19.5 10^3/uL (4.8-10.8)
[2024-05-29] MEDS: CORDARONE 103 MG IV (03:39)
--- NOTE | 2024-05-29 03:41 | ECGCV ---
[facility]PA notified of ECG critical value identified by electronic interpretation on ECG completed on 05/29/24, at 0330.
--- NOTE | 2024-05-29 03:43 | PTCARENOTE ---
NSR on monitor. Morning labs drawn and sent. ECG obtained, critical value, CTPA Tslina aware. Amio bolus ordered and hung (See MAR). Morning care provided. Pt resting in bed. Will continue to monitor pt needs.
[2024-05-29 03:57] LABS: Blood Urea Nitrogen 15 mg/dl (7-17); Carbon Dioxide 25 mmol/L (22-30); Estimated Creatinine Clearance 97 ml/min; Glucose 140 mg/dl (70-99); Magnesium 2.5 mg/dl (1.6-2.3); Potassium 4.8 mmol/L (3.5-5.1); Sodium 141 mmol/L (135-145); eGFR > 60.00
[2024-05-29] MEDS: CARDENE 200 IV (03:59)
[2024-05-29 04:19] LABS: Chloride 108 mmol/L (98-107)
[2024-05-29 04:24] LABS: Glucose - Point of Care 164 mg/dl (70-99)
[2024-05-29] MEDS: ANCEF 5 IV ×2 (04:33→12:11)
[2024-05-29 05:27] LABS: Glucose - Point of Care 143 mg/dl (70-99)
[2024-05-29] MEDS: TYLENOL 1000 MG PO ×3 (06:11→21:25)
--- NOTE | 2024-05-29 06:47 | W.PN.CT ---
Today's Communication / Plan
-
-pod #1
-no significant issues overnight
-drips: Insulin, Cardene @1 for radial graft, Levo 5
-CT outputs: 2 meds 95/150, 2 pleur 75/155 in 12/24 hrs
-wean off Levo, then deline
-continue insulin
-d/c Rhoades
-transition from Cardene to Norvasc for radial graft
-long Qt postop- postop Amio was held - monitor
-pt states that Toprol was stopped in the past d/t bradycardia
-encourage IS, OOB
Assessment / Plan
-
- mv-CAD - s/p CABG x 3 (JODI to LAD, L RA to OM, GSV to RPDA) by Dr. Albrecht on 05/28/24, pod #1
- Intraop BISHOP: LVEF: 65-70% w/o RWMA, normal RV, mild MR, gquwzwq-px-gfkg TR
- HTN/HLD
- Class 2 obesity (BMI 37)
- DM II
- GERD
- OA, s/p b/l TKR
- L RTC repair
- Non-smoker
- Acute postop blood loss anemia - stable without transfusion
- Acute postop atelectasis
- Acute postop hypovolemia with subsequent hypervolemia
- Suspected acute postop pericarditis/+rub
Discussed patient care with: Nursing and Care Team
Subjective
-
Date of Service: May 28, 2024
Objective Data
-
Lab Results
05/28/24 18:14
05/28/24 14:09
PT 16.6 Sec (11.4-14.6) H 05/28/24 14:09
INR 1.29 05/28/24 14:09
APTT 24.0 Sec (23.4-35.0) 05/28/24 14:09
Vital Signs
Vital Signs
Temp Pulse Resp BP Pulse Ox
99.1 F 79 14 137/73 96
05/28/24 23:05 05/28/24 23:00 05/28/24 23:05 05/28/24 05:07 05/28/24 23:05
CT Intake/Output/Weight
05/28/24 05/28/24 05/29/24
06:59 18:59 06:59
Intake Total 354.2 / 905.7 551.5 / 905.7
Output Total 555 / 900 345 / 900
Balance -200.8 / 5.7 206.5 / 5.7
SaO2: 96
Physical Exam
-
General: Awake and AOx3
Cardiovascular: Regular rate & rhythm, No Murmurs and Rub
Respiratory: Decreased Breath Sounds
Sternum: Stable
Incision: Clean, Dry and Dressing Intact
Extremities: Edema +1 (2+ DP pulses. L arm with lydia wrap, warm fingers with intact feeling, good capilary refill)
Abdomen: soft, nontender, nondistended, + decreased bowel sounds.
Data Reviewed
-
Lab Results: Results Reviewed
Medications: Active Meds Reviewed
Chest X-Ray: Report Reviewed and Image Reviewed
ECG: Report Reviewed and Image Reviewed
[2024-05-29 06:57] LABS: Glucose - Point of Care 140 mg/dl (70-99)
[2024-05-29] MEDS: LOPRESSOR PO (07:36)
--- NOTE | 2024-05-29 07:49 | W.PN.CD ---
Addendum entered and electronically signed by Ji Dennis DO 05/29/24 09:11:
Reviewed echo at bedside - done with perflutren.
No regional wall motion appreciated.
Patient reports pain worse with pressure of echo probe, cough and deep inspiration (pleuritic).
Favor a diagnosis of focal pericarditis.
Treat conservatively.
Add colchicine 0.6 mg PO BID if pain continues.
Original Note:
Today's Communication / Plan
-
Urgent echo this morning.
Otherwise routine post operative management.
Impression / Plan
-
Impression/Plan: 59 y/o female with obesity, asthma, HTN, HLD, NIDDM and MV-CAD admitted for elective CABG.
#CAD
-Chronic.
-S/P CABG x 3 (BRAVO-LAD; Radial-OM; SVG-RPDA) with Dr. Albrecht, 05/28/24.
-Extubated.
-EKG shows some DIPAK in the lateral limb leads - this is new from prior EKG.
-Check echo this morning - concern for focal pericarditis vs. graft failure/ischemia.
-Encourage incentive spirometry.
-Wean pressors/inotropes for MAP > 65 mmHg, CI > 1.8 L/min/m2.
-Not quite ready for diuresis.
-Chest tube/pain management per CT surgery.
#Hypertension
-Chronic.
-Currently on vasopressor support - agents on hold.
#Hyperlipidemia
-Chronic.
-Continue statin therapy.
#NIDDM2
-Currently on insulin drip.
-Restart home medications as his DM will permit.
#Prolonged QT interval:
-Avoid additional agents that would prolong QT.
-Monitor on telemetry
-EKG in a.m.
#Morbid obesity
#Asthma
Primary sap data architect Dr. Hamm
Subjective/Interval History:
CABG x3 yesterday.
Extubated yesterday at 17:10.
Weight is up 5 kg from fela.
EKG shows DIPAK in lateral limb leads.
DATA:
Intraprocedural BISHOP, 05/28/2024:
CONCLUSIONS
Normal left ventricular size and systolic function. Stage I diastolic
dysfunction.
Mild mitral regurgitation, mild MAC.
The aorta has atheroma less than 5 mm and moderate calcifications in the arch.
Mild biatrial enlargement.
Trace AI. Trace TR. Trace PI.
POST OPERATIVE FINDINGS
Status post CABG x 3, the left ventricle is hyperdynamic EF 65 to 70% 70 to
75%, no regional wall motion abnormalities seen.
Normal right ventricular size and function.
Mild MR. Trace TR. Trace AI.
The rest of the study is unchanged.
Cardiac Catheterization, 05/01/2024:
CORONARY ANGIOGRAPHY
Dominance: Right
Left Main: Normal
LAD: 70% mid LAD stenosis distal to D1 with 40% mid LAD stenosis just distal to D2. The remainder of the LAD system has mild luminal disease
Circumflex: The severely calcified circumflex is totally occluded just distal to the takeoff of a twig like OM1 and OM 2 vessels. A large OM 3 fills retrograde via left to left collaterals. A small LPL1, medium to large LPL2 and small to medium
sized LPL3 all fill via right to left collaterals
RCA: Moderate to severe calcification with 20% proximal and focal 70% mid stenoses. There is 60% distal RCA stenosis just proximal to the origin of the large healthy appearing RPDA. The RCA continues on to give rise to a large first right
posterolateral branch and a small terminal second right posterolateral branch
FloWire assessment: At the conclusion of the diagnostic study the patient underwent FloWire assessment of the LAD disease. Heparin was used for anticoagulation. A 5 Kiswahili JL 4 guide catheter was used. A MYOMO pressure wire was advanced into
the mid to distal LAD. iFR measurements were 0.86, 0.85, and 0.86. These measurements are all consistent with flow-limiting disease. Pullback demonstrated the drop in Pd/Pa to be at the site of the 70% mid LAD stenosis.
Physical Exam
Vital Signs/Labs
Vital Signs
Temp Pulse Resp BP Pulse Ox
37.4 C 90 18 113/70 94
05/29/24 05:57 05/29/24 07:30 05/29/24 07:30 05/29/24 06:01 05/29/24 07:30
05/27/24 05/28/24 05/29/24
11:59 11:59 11:59
Actual Weight 99.1 kg 104.1 kg
05/29/24 03:19
05/29/24 03:19
PT 16.6 Sec (11.4-14.6) H 05/28/24 14:09
INR 1.29 05/28/24 14:09
APTT 24.0 Sec (23.4-35.0) 05/28/24 14:09
Magnesium 2.5 mg/dl (1.6-2.3) H 05/29/24 03:19
Physical Exam
Constitutional: No acute distress and Comfortable
EENT: Anicteric and Moist mucous membranes
Cardiovascular: Rhythm & rate is regular, Pedal edema is absent, JVD pressure is normal and S1S2 is normal
Respiratory: Respiratory effort normal and Other (Decreased throughout.)
GI: Soft, Distention absent, Flat, Non tender and Normal bowel sounds
Neuro/Psych: AO x 3
Data Reviewed
-
Date of Service: May 29, 2024
Medical Decision Making: Reviewed Test Results, Tests Ordered, Independent Historian Assessment and Test Interpretation
EKG: Tracing Personally Visualized and interpreted and Report Reviewed by me
Echo: Report Reviewed by me
X-Ray/CT/US/MRI/NUC/PET: Image Personally Visualized and interpreted and Report Reviewed by me
Medical Tests (PFT, Pathology etc): Report Reviewed by me
Labs: Labs Reviewed by me
Old Records: Reviewed
[2024-05-29 07:50] LABS: Glucose - Point of Care 186 mg/dl (70-99)
[2024-05-29] MEDS: ZOFRAN 4 MG IV (08:00)
[2024-05-29 08:06] LABS: Ionized Calcium 1.07 mMOL/L (1.15-1.33)
--- NOTE | 2024-05-29 08:15 | PTCARENOTE ---
Assumed care of patient. Walking rounds complete with previous RN. Pt assessed while she was lying in bed. Pt alert and oriented x4. Pt c/o 4/10 sternal pain and nausea-see MAR. BOSTON with equal strength in all extremities. NSR on tele with rates in
the 80s-90s. BP supported with levophed to maintain MAP >65, titrating as able. Cardene at set rate of 1mg/hr for radial graft. Right radial and left ulnar pulse weakly palpable. Bilateral DPPT pulses present via doppler. Generalized +1 edema
throughout. +Rub. CVP 8. POX 94% on 4L NC, titrated to 2L NC, POX remained 94%. Lungs diminished throughout. IS encouraged-1000mL achieved. +productive cough with clear sputum. Mediastinal chest tubes x2 y-sited to 1 atrium to -20cm suction draining
serosanguineous fluid. Right and Left pleural chest tubes y-sited to 1 atrium to -20cm suction draining sanguinous fluid. No air leaks, tidaling, crepitus noted. Abdomens soft, round, nontender. Hypoactive BS. +gas per patient. +belching. Rhoades
intact draining clear yellow urine. Sternal incision covered with antibiotic dressing, CDI. Chest tube sites cleansed and dressing changed. Left radial artery harvest site covered with PATRICIA-CDI. Right groin puncture site approximated. Right SVG
harvest site covered with PATRICIA-CDI. Right IJ cordis with Kenyon intact. Right radial urben intact, positional. All lines flushed, leveled, zeroed. Right hand PIV intact infusing insulin per Critical Care Glycemic Protocol. See MAR for medication
administration. See worklist for complete nursing assessment. Plan of care reviewed and patient in agreement.
[2024-05-29] MEDS: CALCIUM GLUCONATE 100 IV ×2 (08:16→22:40)
[2024-05-29] MEDS: LOW STRENGTH ASPIRIN 81 MG PO (08:58)
[2024-05-29] MEDS: PROTONIX 40 MG PO (08:58)
[2024-05-29] MEDS: LIDOCAINE 4% PATCH 1 PATCH TOPICAL (08:58)
[2024-05-29] MEDS: PACERONE 200 MG PO ×3 (08:58→21:26)
[2024-05-29] MEDS: PLAVIX 75 MG PO (08:58)
[2024-05-29] MEDS: FEOSOL 325 MG PO (08:58)
[2024-05-29] MEDS: VITAMIN C 500 MG PO (08:58)
[2024-05-29] MEDS: SENOKOT-S 1 TABLET PO ×2 (08:58→19:53)
[2024-05-29] MEDS: FLEXERIL 5 MG PO ×2 (08:59→18:12)
[2024-05-29] MEDS: NORVASC PO (08:59)
[2024-05-29] MEDS: MUCINEX 600 MG PO ×2 (09:00→19:53)
[2024-05-29] MEDS: BACTROBAN 2% OINTMENT 1 APPLIC NASAL ×2 (09:01→19:57)
[2024-05-29] MEDS: NEURONTIN 100 MG PO ×3 (09:11→21:28)
[2024-05-29] MEDS: NORVASC 2.5 MG PO (09:14)
[2024-05-29 09:24] LABS: Glucose - Point of Care 132 mg/dl (70-99)
[2024-05-29] MEDS: NOVOLOG FLEXPEN 4 UNITS SC ×2 (09:31→13:20)
--- NOTE | 2024-05-29 11:00 | PTCARENOTE ---
Orders received to erica/rob miranda & hugo. Orders completed, pt tolerated.
[2024-05-29 11:11] LABS: Glucose - Point of Care 110 mg/dl (70-99)
[2024-05-29 12:15] LABS: Glucose - Point of Care 89 mg/dl (70-99)
--- NOTE | 2024-05-29 12:30 | PTCARENOTE ---
Pt reassessed. A&Ox4. NSR on tele with rates in the 80s. BP 101/62 off gtts. POX 97% on 2L NC, attempted RA, POX 88%, resumed 2L NC. CT output WNL. Rhoades continues to drain clear yellow urine. Surgical sites stable. Right IJ cordis and Right hand
PIV intact. Pt assisted OOB with 2 assist to chair. Pt tolerated.
[2024-05-29 13:20] LABS: Glucose - Point of Care 143 mg/dl (70-99)
--- NOTE | 2024-05-29 14:00 | PTCARENOTE ---
PATRICIA bandages removed from left arm and right leg. All incisions approximated with skin glue with ecchymosis surrounding incisions. Now PEARL TECHNICIAN.
--- NOTE | 2024-05-29 14:01 | PN.DE.MGMTRT ---
Insulin Management
- -
05/29/2024 Diabetes Management Consult
Patient admitted for CABG, PMH HTN, asthma, HLD, GERD, anxiety, osteoarthritis, type 2 diabetes. A1C on admission 10.6%, cr .7, eGFr >60.
Patient is awake alert and oriented, able to discuss diabetes management. States she sees Malik Peña but will see Dr. Murray in July.
POD 1 will continue glycemic protocol. When ready to transition start lantus @ hs 14 units with glipizide and repaglinide (home meds) and start Farxiga.
Diabetes History
- -
Type of Diabetes: 2
Pre-Admission Diabetes Regimen
05/28/24 05/29/24
14:09 03:19
Creatinine 0.7 0.7
Lab Results
Hemoglobin A1c 10.6 % (4.0-5.6) H 05/26/24 08:39
Insulin Pump Settings
IP Diabetes Regimen
05/28/24 05/28/24 05/28/24
14:09 15:14 16:02
Glucose 154 H
POC Glucose 153 H 152 H 168 H
05/28/24 05/28/24 05/28/24
16:48 18:21 19:05
Glucose
POC Glucose 175 H 194 H 201 H
05/28/24 05/28/24 05/29/24
20:03 21:51 00:03
Glucose
POC Glucose 177 H 156 H 186 H
05/29/24 05/29/24 05/29/24
00:03 01:05 02:05
Glucose
POC Glucose 186 H 162 H 148 H
05/29/24 05/29/24 05/29/24
03:08 03:19 04:22
Glucose 140 H
POC Glucose 132 H 164 H
05/29/24 05/29/24 05/29/24
05:26 06:56 09:21
Glucose
POC Glucose 143 H 140 H 132 H
05/29/24 05/29/24 05/29/24
11:10 12:10 13:18
Glucose
POC Glucose 110 H 89 143 H
Meal type: Breakfast
Amount consumed: 50%
Patient Education
[2024-05-29] MEDS: LR 250 IV ×2 (14:17→16:15)
[2024-05-29 14:27] LABS: Glucose - Point of Care 185 mg/dl (70-99)
--- NOTE | 2024-05-29 14:52 | W.PN.INTV ---
Today's Communication / Plan
Recommendations
Continue postoperative care
Follow chest tube output
Follow hemoglobin
Colchicine started for possible focal pericarditis
Increase mobility as able
Sign off
Assessment
-
59-year-old woman with history of coronary artery disease. Electively admitted for revascularization. Underwent coronary artery bypass 05/28/[address] Albrecht. We were consulted for postoperative ICU management
Status post coronary artery bypass 05/28/[address] Albrecht
Postoperative mechanical ventilation
Postoperative anemia
Condition present prior admission:
Coronary artery disease-preserved ejection fraction. Multivessel coronary artery disease on catheterization 05/01/2024
Hypertension
Type 2 diabetes
Hyperlipidemia
Obese
? Asthma
Osteoarthritis
Allergic rhinitis
Assessment and plan:
Postoperative day 1
Extubated 05/28/2024
Doing well
Anemia noted-no evidence of acute bleeding
leukocytosis likely reactive. Idatil-[id number]-[id number] afebrile
Follow H&H serially
Echocardiogram this morning without acute abnormality
Possible pericarditis-colchicine started.
Hemodynamics -stable off vasopressors
Normal renal function.
Adequate urinary output, continue to follow.
Chest tube with no excessive drainage-no air leak.
Chest x-ray reviewed: With no pneumothorax or fluid collections. Minimal bibasal atelectasis
Advance diet
Head of the bed elevation
Glycemic control per protocol
DVT prophylaxis when safe from the surgical perspective.
Patient has been transferred to telemetry
No additional critical care recommendations. Sign off
Subjective Dataa
Subjective Data
Date of Service:
Date of Service: May 29, 2024
Chief Complaint: Twisting Frame Operator Follow Up (Status postcoronary artery bypass)
Subjective:
No overnight events
Hemodynamically stable
Pain is controlled
Denies shortness of breath at rest
Review of Systems
General: Fever (n)
Cardiopulmonary: Dyspnea (n) and Cough (n)
GI: Abdominal Pain (n) and Nausea (n)
Objective Data
Data Reviewed
Vital Signs / I&O / Oxygen:
Vital Signs
Temp Pulse Resp BP Pulse Ox
98.1 F 92 16 104/60 93
05/29/24 12:00 05/29/24 14:19 05/29/24 13:00 05/29/24 14:19 05/29/24 14:00
Intake and Output
05/28/24 05/29/24 05/30/24
06:59 06:59 06:59
Intake Total 1766.6 / 1766.6 726.8 / 726.8
Output Total 1340 / 1340 405 / 405
Balance 426.6 / 426.6 321.8 / 321.8
SaO2 93
Nasal Cannula flow liters per 2
minute
Physical Exam
General: Comfortable
HEENT: Normocephalic
Cardiovascular: S1-S2
Respiratory: Non-Labored Respirations and Chest Tube (No excessive drainage or air leak)
GI: Soft and Non Distended
Neurology: Awake and Alert
Labs/Micro/Reports
Lab Data
05/29/24 03:19
05/29/24 03:19
Laboratory Results
05/28/24
16:46
pH 7.39
pCO2 44 H
pO2 105
HCO3 26.6
O2 Delivery Level
Microbiology
05/26/24 08:39 Nose MRSA Screen - Final
No Methicillin Resistant Staphylococcus aureus isolated.
--- NOTE | 2024-05-29 15:13 | CM ---
priced farxiga with pts insurance co- farxiga is $35/month, lantus is non formulary- semglee is covered at $35/month. pt agreeable to this rowe
--- NOTE | 2024-05-29 15:43 | W.PN.ANS.POP ---
Anesthesia Post Operative
- Anesthesia Post Op Note
Vital Signs Stable-See Nursing Note: Yes
Airway Patent: Yes
Adequate Pain Control: Yes
Change in Mental Status: No
Current Postoperative Nausea & Vomiting: No
Anesthesia Complications: No
General Anesthetic Recall: No
Unplanned Admission: No
Post Op Hydration Adequate: Yes
- -
Pt OOB to chair, resting comfortably. Spoke with RN, VSS and patient doing well.
[2024-05-29 15:48] LABS: Glucose - Point of Care 145 mg/dl (70-99)
--- NOTE | 2024-05-29 16:00 | PTCARENOTE ---
Pt reassessed. Pt rates sternal pain 5/10, intermittently falls asleep in the chair. NSR on tele with rates in the 70s-80s. BP 89/52. POX 93% on RA. Surgical sites stable. CT output WNL. No other acute changes from previous assessment.
[2024-05-29] MEDS: NOVOLIN R INSULIN INFUSION 100 IV (16:15)
--- NOTE | 2024-05-29 16:15 | PTCARENOTE ---
CT CHANNEL MARKETING COORDINATOR notified of continued low UO. 500ml LR bolus total given per orders.
[2024-05-29 17:18] LABS: Glucose - Point of Care 117 mg/dl (70-99)
[2024-05-29] MEDS: CRESTOR 20 MG PO (17:18)
[2024-05-29] MEDS: ProAmatine 5 MG PO (17:18)
[2024-05-29] MEDS: NOVOLOG FLEXPEN 5 UNITS SC (17:18)
--- NOTE | 2024-05-29 19:30 | PTCARENOTE ---
[facility]. Walking rounds completed. Pt assessment completed in bed. Pt is AAOx4, no neuro deficits noted. NSR on monitor HR 84,
B/P 106/68. R radial and L ulnar pulse weak on palpation . Bilateral DP pulses weak on palpation, bilateral PT pulses present with doppler. Generalized +1 edema throughout. Lungs diminished throughout. POX 92% on RA, IS encouraged-1000mL achieved.
Frequent productive cough, clear sputum. Mediastinal chest tubes x2, Right and Left pleural chest tubes, y-sited to 1 atrium to -20cm suction draining sanguinous fluid. No air leaks, tidaling, crepitus noted. Rhoades intact. Draining clear yellow
fluid. NBS, abdomen soft, non-tender to touch. Sternal incision Aquacel, CDI. Chest tube sites dressing C/D/I. Left radial artery harvest site WILLIE, approximated with surgical glue present. Right groin puncture site approximated. Right SVG harvest
site WILLIE, approximated with surgical glue present. Right IJ cordis intact. 20g PVA R hand intact infusing insulin per Critical Care Glycemic Protocol. See MAR for medication administration. Plan of care reviewed with pt. Pt agrees with plan. Will
continue to monitor pt needs.
[2024-05-29] MEDS: LOPRESSOR 12.5 MG PO (19:54)
[2024-05-29] MEDS: XANAX 0.5 MG PO (21:25)
[2024-05-29 22:20] LABS: Glucose - Point of Care 83 mg/dl (70-99)
[2024-05-29 22:20] LABS: Glucose - Point of Care 166 mg/dl (70-99)
[2024-05-29 22:23] LABS: Ionized Calcium 1.03 mMOL/L (1.15-1.33)
--- NOTE | 2024-05-29 22:30 | PTCARENOTE ---
Pt b/p 87/50 on monitor. CTPA Tslina made aware. Ical drawn, sent, and
--- NOTE | 2024-05-29 22:31 | PTCARENOTE ---
Pt b/p 87/50. CTPA Mikey made aware. Ical drawn and sent. Calcium Gluconate ordered and hung (see MAR). Will continue to monitor pt needs.
[2024-05-29 23:28] LABS: Glucose - Point of Care 132 mg/dl (70-99)
[2024-05-30] VITALS (33 sets, daily range): BP systolic 86–137; BP diastolic 51–93; PULSE 78; O2SAT 92–94; BMI 39.3
[2024-05-30 01:11] LABS: Glucose - Point of Care 100 mg/dl (70-99)
[2024-05-30 03:05] LABS: Glucose - Point of Care 84 mg/dl (70-99)
--- NOTE | 2024-05-30 04:42 | PTCARENOTE ---
NSR on monitor HR 86, B/P 102/56. Am labs drawn and sent. ECG obtained. Morning care provided. Pt c/o cough and sore throat. CTPA Tslina aware. Pt resting in bed. Will continue to monitor pt needs.
[2024-05-30] MEDS: FLEXBUMIN 50 IV ×3 (04:46→19:27)
[2024-05-30 04:56] LABS: Hematocrit 28.4 % (37.0-47.0); Hemoglobin 9.4 g/dL (12.0-16.0); Mean Corp Hgb Conc. 33.1 g/dL (33.0-37.0); Mean Corpuscular Hgb 30.8 pg (27.0-31.0); Mean Corpuscular Volume 93.1 fL (81.0-99.0); Mean Platelet Volume 10.2 fL (7.4-10.4); Platelet Count 165 10^3/uL (130-400); Red Blood Cell Count 3.05 10^6/uL (4.20-5.40); Red Cell Dist. Width 12.9 % (11.5-14.5); White Blood Cell Count 15.2 10^3/uL (4.8-10.8)
[2024-05-30] MEDS: FLEXERIL 5 MG PO (05:08)
[2024-05-30] MEDS: TYLENOL 1000 MG PO ×3 (05:08→21:21)
[2024-05-30 05:13] LABS: Blood Urea Nitrogen 25 mg/dl (7-17); Calcium 8.1 mg/dl (8.4-10.2); Carbon Dioxide 27 mmol/L (22-30); Chloride 103 mmol/L (98-107); Estimated Creatinine Clearance 69 ml/min; Glucose 108 mg/dl (70-99); Magnesium 2.2 mg/dl (1.6-2.3); Potassium 4.8 mmol/L (3.5-5.1); Sodium 136 mmol/L (135-145); eGFR > 60.00
[2024-05-30] MEDS: ANESTHETIC LOZENGE 1 LOZENGE PO ×3 (05:19→14:10)
[2024-05-30 05:23] LABS: Glucose - Point of Care 153 mg/dl (70-99)
--- NOTE | 2024-05-30 07:05 | PTCARENOTE ---
Afib on tele. EKG obtained to confirm. CT MILKING WORKER notified. Orders for amio bolus & amio gtt. Administered per orders. Pt asymptomatic.
[2024-05-30] MEDS: CORDARONE 103 MG IV (07:19)
--- NOTE | 2024-05-30 07:19 | W.PN.CT ---
Addendum entered and electronically signed by Julio Albrecht MD 05/30/24 08:07:
I saw and examined the patient.
The PA's note was reviewed and I agree with the note.
Comment:
AF converted to NSR - continue amio protocol
Continue midodrine - hold BB - follow BP
D/C CTs
D/C edmondson
OOB/IS/ambulate
Diuresis
Original Note:
Today's Communication / Plan
-
-pod #2
-went into a-fib 120s-130s at ~7am- tx with Amio bolus and drip
-remains hypotensive-started on Midodrine 5 tid. Repleted Ca last night
-weight is up 11 lbs from preop. Difficult to diurese d/t low BP. Started 25% Albumin x3
-suspected pericarditis. Echo is normal 05/29
-holding Trazodone while on Amio d/t prolonged Qt- follow ECG
-monitor rhythm on BB (hx of bradycardia with Toprol, no pw)
-transition off iv insulin as directed by DM
-CT output: 2 meds 75/170, 2 pleur 65/255 in 12/24 hrs
-current meds (ASA, Plavix, Crestor, Midodrine, Amio, Norvasc for radial graft, Feosol, Protonix). Will hold BB d/t low BP
-appreciate everyone's input
Assessment / Plan
-
- mv-CAD - s/p CABG x 3 (JODI to LAD, L RA to OM, GSV to RPDA) by Dr. Albrecht on 05/28/24, pod #2
- Intraop BISHOP: LVEF: 65-70% w/o RWMA, normal RV, mild MR, vbjqmwm-fw-yaal TR
- HTN/HLD
- Class 2 obesity (BMI 37)
- DM II
- GERD
- OA, s/p b/l TKR
- L RTC repair
- Non-smoker
- Acute postop blood loss anemia - stable without transfusion
- Acute postop atelectasis
- Acute postop brief runs of a-fib/pat on pod #0 - tx with Amio bolus
- Acute postop a-fib 130s on 05/30 at 7am - tx with Amio bolus and drip
- Acute postop prolonged Qt - improved. Holding Trazodone
- Acute postop hypovolemia with subsequent hypervolemia
- Suspected acute postop pericarditis/+rub
- Acute postop hypotension d/t vasoplegia, requiring Midodrine
- Postop Echo 05/29/24:
Normal biventricular size and systolic function. LVEF 60-65%.
No regional wall motion abnormalities.
No significant valvular disease.
No pericardial effusion.
No change compared to prior TTE on 04/08/2024.
Discussed patient care with: Nursing and Care Team
Subjective
-
Date of Service: May 30, 2024
Objective Data
-
PT 16.6 Sec (11.4-14.6) H 05/28/24 14:09
INR 1.29 05/28/24 14:09
APTT 24.0 Sec (23.4-35.0) 05/28/24 14:09
Vital Signs
Vital Signs
Temp Pulse Resp BP Pulse Ox
98.0 F 69 16 97/52 95
05/30/24 01:00 05/30/24 02:00 05/30/24 02:00 05/30/24 02:00 05/30/24 02:00
CT Intake/Output/Weight
05/29/24 05/29/24 05/30/24
06:59 18:59 06:59
Intake Total 1412.4 / 1766.6 1297.8 / 1509.1 211.3 / 1509.1
Output Total 785 / 1340 530 / 880 350 / 880
Balance 627.4 / 426.6 767.8 / 629.1 -138.7 / 629.1
SaO2: 95
Physical Exam
-
General: Awake and AOx3
Cardiovascular: Regular rate & rhythm, No Murmurs and Rub
Respiratory: Decreased Breath Sounds
Sternum: Stable
Incision: Clean, Dry and Dressing Intact
Extremities: Edema +2
Abdomen: soft, nontender, + bowel sounds
Data Reviewed
-
Lab Results: Results Reviewed
Medications: Active Meds Reviewed
Chest X-Ray: Report Reviewed and Image Reviewed
ECG: Report Reviewed and Image Reviewed
[2024-05-30 07:26] LABS: Glucose - Point of Care 124 mg/dl (70-99)
[2024-05-30] MEDS: CORDARONE 518 MG IV (07:43)
--- NOTE | 2024-05-30 07:55 | PTCARENOTE ---
Pt converted to NSR. BP 97/58.
--- NOTE | 2024-05-30 08:30 | PTCARENOTE ---
Resumed care of patient. Pt assessed while she was lying in the bed. Pt alert and oriented x4. Pt denies shortness of breath, and nausea. Rates sternal pain 3/10. BOSTON with equal strength in all extremities. NSR on tele with rates in the 70s-80s. BP
100/53. +Rub. Right radial, left ulnar, and bilateral DP pulses palpable. +1 generalized edema. POX 93% Lungs diminished throughout. IS encouraged-750mL achieved. Mediastinal chest tubes x2 y-sited to 1 atrium to -20cm suction draining
serosanguineous fluid. Right and left pleural chest tubes y-sited to 1 atrium to -20cm suction draining serosanguineous fluid. no air leaks, tidaling, crepitus noted. Abdomen soft, round, obese, nontender. Hypoactive BS. Rhoades catheter intact
draining adequate amounts of reggie urine. Sternal incision covered with Aquacel-CDI. Chest tube dressing CDI. Left radial incision approximated with skin glue, ecchymotic. Right groin incision approximated, right SVG incision approximated. Right IJ
cordis intact infusing amiodarone gtt and KVO. Right hand PIV infusing insulin gtt per Critical Care Glycemic. See MAR for medication administration. See worklist for complete nursing assessment. Plan of care reviewed and patient in agreement.
[2024-05-30] MEDS: LIDOCAINE 4% PATCH 1 PATCH TOPICAL (08:58)
[2024-05-30] MEDS: FEOSOL 325 MG PO (08:58)
[2024-05-30] MEDS: NEURONTIN 100 MG PO ×3 (08:58→21:21)
[2024-05-30] MEDS: NOVOLOG FLEXPEN 4 UNITS SC ×3 (08:58→17:17)
[2024-05-30] MEDS: PLAVIX 75 MG PO (08:58)
[2024-05-30] MEDS: SENOKOT-S 1 TABLET PO ×2 (08:58→19:26)
[2024-05-30] MEDS: PACERONE 200 MG PO ×3 (08:58→21:22)
[2024-05-30] MEDS: VITAMIN C 500 MG PO (08:58)
[2024-05-30] MEDS: MUCINEX 600 MG PO ×2 (08:58→19:26)
[2024-05-30] MEDS: ProAmatine 5 MG PO ×2 (08:58→12:30)
[2024-05-30] MEDS: NORVASC 2.5 MG PO (08:58)
[2024-05-30] MEDS: BACTROBAN 2% OINTMENT 1 APPLIC NASAL ×2 (08:59→19:27)
[2024-05-30] MEDS: PROTONIX 40 MG PO (08:59)
[2024-05-30] MEDS: LOW STRENGTH ASPIRIN 81 MG PO (08:59)
[2024-05-30 09:02] LABS: Glucose - Point of Care 98 mg/dl (70-99)
--- NOTE | 2024-05-30 10:00 | PTCARENOTE ---
Chest tubes d/c per orders. Sutures tied, dressing changed. Pt tolerated. Rhoades d/c per orders, pt tolerated. DTV 1600. Pt assisted OOB to chair with 2 assist, tolerated. standing weight obtained.
[2024-05-30 11:10] LABS: Glucose - Point of Care 227 mg/dl (70-99)
[2024-05-30] MEDS: NSS IV (12:21)
[2024-05-30 12:29] LABS: Glucose - Point of Care 133 mg/dl (70-99)
[2024-05-30] MEDS: FARXIGA 10 MG PO (12:30)
[2024-05-30] MEDS: NOVOLIN R INSULIN INFUSION 100 IV (12:30)
--- NOTE | 2024-05-30 12:30 | PTCARENOTE ---
Pt reassessed. NSR on tele with rates in the 70s. BP 96/60. POX 96% on RA. Surgical sites stable. Pt resting in the chair.
[2024-05-30 14:32] LABS: Glucose - Point of Care 134 mg/dl (70-99)
--- NOTE | 2024-05-30 16:30 | PTCARENOTE ---
Pt reassessed. NSR with rates in the 70s. BP 107/57. POX 94% on RA. Surgical sites stable. Assisted OOB and ambulated in the lee 250'. Pt tolerated. Insulin gtt continues.
[2024-05-30 16:33] LABS: Glucose - Point of Care 136 mg/dl (70-99)
[2024-05-30] MEDS: CRESTOR 20 MG PO (17:22)
[2024-05-30] MEDS: ProAmatine PO (17:24)
[2024-05-30 18:34] LABS: Glucose - Point of Care 135 mg/dl (70-99)
--- NOTE | 2024-05-30 19:00 | PTCARENOTE ---
assumed care of patient @ 1900. received pt sitting in chair, AOx3. VSS on RA. SR on tele, +1 anasarca. Lungs clear, occasional productive cough with white sputum. BS active, belly soft, nontender. voiding in bathroom. Sugical incisions all CDI. R
hand PIV and R IJ cordis patent. insulin per protocol and amio at 0.5. assisted pt to bathroom and then to bed, resting comfortably with call taveras within reach .
[2024-05-30] MEDS: LOPRESSOR 12.5 MG PO (19:26)
[2024-05-30 21:03] LABS: Glucose - Point of Care 76 mg/dl (70-99)
[2024-05-30] MEDS: XANAX 1 MG PO (21:22)
[2024-05-30] MEDS: LANTUS 0.14 UNITS SC (22:03)
[2024-05-30 22:13] LABS: Glucose - Point of Care 126 mg/dl (70-99)
--- NOTE | 2024-05-30 23:00 | PTCARENOTE ---
insulin drip turned off per order. pt resting comfortably with call taveras within reach .
[2024-05-30 23:04] LABS: Glucose - Point of Care 131 mg/dl (70-99)
[2024-05-31] VITALS (10 sets, daily range): BP systolic 100–136; BP diastolic 58–74; BMI 39.4
[2024-05-31] MEDS: ROXICODONE 5 MG PO (03:28)
[2024-05-31] MEDS: ANESTHETIC LOZENGE 1 LOZENGE PO (03:42)
[2024-05-31 03:57] LABS: Hematocrit 26.9 % (37.0-47.0); Hemoglobin 8.8 g/dL (12.0-16.0); Mean Corp Hgb Conc. 32.7 g/dL (33.0-37.0); Mean Corpuscular Hgb 30.2 pg (27.0-31.0); Mean Corpuscular Volume 92.4 fL (81.0-99.0); Mean Platelet Volume 9.8 fL (7.4-10.4); Platelet Count 152 10^3/uL (130-400); Red Blood Cell Count 2.91 10^6/uL (4.20-5.40); Red Cell Dist. Width 12.5 % (11.5-14.5); White Blood Cell Count 13.5 10^3/uL (4.8-10.8)
--- NOTE | 2024-05-31 04:18 | PTCARENOTE ---
Labs drawn and sent . pt resting comfortably, no change in assessment .
[2024-05-31 04:22] LABS: Blood Urea Nitrogen 21 mg/dl (7-17); Calcium 7.6 mg/dl (8.4-10.2); Carbon Dioxide 21 mmol/L (22-30); Chloride 105 mmol/L (98-107); Estimated Creatinine Clearance 87 ml/min; Glucose 174 mg/dl (70-99); Potassium 4.1 mmol/L (3.5-5.1); Sodium 136 mmol/L (135-145); eGFR > 60.00
--- NOTE | 2024-05-31 04:45 | W.PN.CT ---
Addendum entered and electronically signed by Julio Albrecht MD 05/31/24 08:46:
I saw and examined the patient.
The PA's note was reviewed and I agree with the note.
Comment:
Maintained NSR. OOB. IS. Ambulate.
Continue diuresis today
D/C planning for 1-2 days
Original Note:
Today's Communication / Plan
-
-pod #3
-maintained SR overnight
-HD stable
-weight is up 11 lbs from preop. Diuresis
-suspected pericarditis. Echo is normal 05/29
-holding Trazodone while on Amio d/t prolonged Qt- follow ECG
-monitor rhythm on BB (hx of bradycardia with Toprol, no pw)
-current meds (ASA, Plavix, Crestor, Midodrine, Amio, Norvasc for radial graft, Feosol, Protonix). Will hold BB d/t low BP
Assessment / Plan
-
- mv-CAD - s/p CABG x 3 (JODI to LAD, L RA to OM, GSV to RPDA) by Dr. Albrecht on 05/28/24, pod #3
- Intraop BISHOP: LVEF: 65-70% w/o RWMA, normal RV, mild MR, [id number] TR
- HTN/HLD
- Class 2 obesity (BMI 37)
- DM II
- GERD
- OA, s/p b/l TKR
- L RTC repair
- Non-smoker
- Acute postop blood loss anemia - stable without transfusion
- Acute postop atelectasis
- Acute postop brief runs of a-fib/pat on pod #0 - tx with Amio bolus
- Acute postop a-fib 130s on 12 at 7am - tx with Amio bolus and drip
- Acute postop prolonged Qt - improved. Holding Trazodone
- Acute postop hypovolemia with subsequent hypervolemia
- Suspected acute postop pericarditis/+rub
- Acute postop hypotension d/t vasoplegia, requiring Midodrine
- Postop Echo 05/29/24:
Normal biventricular size and systolic function. LVEF 60-65%.
No regional wall motion abnormalities.
No significant valvular disease.
No pericardial effusion.
No change compared to prior TTE on 04/08/2024.
Subjective
Procedure
05/28: CABGx3 (BRAVO to LAD, RA to OM, SVG to RPDA) by Dr. Albrecht
-
Date of Service: May 31, 2024
Objective Data
-
Lab Results
05/31/24 03:52
05/31/24 03:52
PT 16.6 Sec (11.4-14.6) H 05/28/24 14:09
INR 1.29 05/28/24 14:09
APTT 24.0 Sec (23.4-35.0) 05/28/24 14:09
Vital Signs
Vital Signs
Temp Pulse Resp BP Pulse Ox
98.8 F 65 16 105/64 95
05/31/24 04:13 05/31/24 04:00 05/31/24 04:13 05/31/24 03:00 05/31/24 04:13
CT Intake/Output/Weight
05/30/24 05/30/24 05/31/24
06:59 18:59 06:59
Intake Total 302.0 / 1714.8 798.1 / 1044.4 246.3 / 1044.4
Output Total 590 / 1155 385 / 1185 800 / 1185
Balance -288.0 / 559.8 413.1 / -140.6 -553.7 / -140.6
SaO2: 95
Physical Exam
-
General: AOx3
Cardiovascular: Regular rate & rhythm
Respiratory: Decreased Breath Sounds
Sternum: Stable
Incision: Dressing Intact
Extremities: Edema +1
[2024-05-31] MEDS: TYLENOL 1000 MG PO ×3 (06:45→21:44)
[2024-05-31] MEDS: NSS 500 IV (06:46)
--- NOTE | 2024-05-31 07:45 | PTCARENOTE ---
Resumed care of patient. Walking rounds completed with previous RN. Pt assessed while she was sitting in the chair. Pt alert and oriented x4. Pt rates sternal pain 3/10. Denies nausea and shortness of breath. BOSTON with equal strength, independent in
the room. NSR on tele with rates in the 70s. BP 117/69. Heart tones audible. Right radial, left ulnar and b/l DP pulses palpable. +1 generalized edema noted. POX 94% on RA. Lungs diminished in the bases. IS encouraged 1000ml achieved. No cough
noted. Abdomen soft, round, obese, nontender. +BS. Pt voiding reggie urine in the toilet. Tolerating diet. Sternal incision covered with antimicrobial dressing. Old chest tube sites covered, CDI. Left radial harvest incision approximated with skin
glue, ICE CUTTER. Right groin and right SVG harvest site approximated with skin glue, WILLIE. Right IJ cordis intact. Right hand PIV intact. See MAR for medication administration. See worklist for complete nursing assessment. Plan of care reviewed and patient
in agreement.
[2024-05-31 07:59] LABS: Glucose - Point of Care 181 mg/dl (70-99)
[2024-05-31] MEDS: CALCIUM GLUCONATE 100 IV (07:59)
[2024-05-31] MEDS: PLAVIX 75 MG PO (07:59)
[2024-05-31] MEDS: MAGNESIUM OXIDE 500 MG PO ×2 (07:59→20:10)
[2024-05-31] MEDS: NEURONTIN 100 MG PO ×3 (07:59→21:44)
[2024-05-31] MEDS: LASIX 40 MG IV ×2 (07:59→15:42)
[2024-05-31] MEDS: SENOKOT-S 1 TABLET PO (07:59)
[2024-05-31] MEDS: BACTROBAN 2% OINTMENT 1 APPLIC NASAL ×2 (07:59→20:10)
[2024-05-31] MEDS: VITAMIN C 500 MG PO (07:59)
[2024-05-31] MEDS: MUCINEX 600 MG PO ×2 (08:00→20:10)
[2024-05-31] MEDS: FEOSOL 325 MG PO (08:00)
[2024-05-31] MEDS: PROTONIX 40 MG PO (08:00)
[2024-05-31] MEDS: LOW STRENGTH ASPIRIN 81 MG PO (08:00)
[2024-05-31] MEDS: NORVASC 2.5 MG PO (08:00)
[2024-05-31] MEDS: LOPRESSOR 12.5 MG PO ×2 (08:00→20:10)
[2024-05-31] MEDS: FARXIGA 10 MG PO (08:00)
[2024-05-31] MEDS: LIDOCAINE 4% PATCH 1 PATCH TOPICAL (08:00)
[2024-05-31] MEDS: PRANDIN 2 MG PO ×3 (08:00→17:45)
[2024-05-31] MEDS: PACERONE 200 MG PO ×3 (08:00→21:44)
[2024-05-31] MEDS: NOVOLOG FLEXPEN SC (08:16)
[2024-05-31 11:42] LABS: Glucose - Point of Care 353 mg/dl (70-99)
--- NOTE | 2024-05-31 11:49 | PTCARENOTE ---
Discharge order received. Sternal dressing d/c, incision approximated with no drainage. Epicardial v-wire cut by CT DETAIL ASSEMBLER. Showering instructions provided.
[2024-05-31] MEDS: NOVOLOG FLEXPEN-MODERATE RESISTANCE 9 UNITS SC (12:23)
--- NOTE | 2024-05-31 13:00 | PTCARENOTE ---
Pt reassessed. NSR on tele with rates in the 70s. BP 136/72. POX 97% on RA. Surgical sites stable. Right IJ cordis d/c. Old chest tube sites uncovered, no drainage. Pt resting in bed.
--- NOTE | 2024-05-31 15:58 | PTCARENOTE ---
Pt reassessed. NSR on tele with rates in the 70s. BP 136/67. POX 94% on RA. Surgical sites stable. +BM. continues to void clear yellow urine in the toilet. Ambulating in the lee and room independently.
[2024-05-31] MEDS: NOVOLOG FLEXPEN 10 UNITS SC (17:43)
[2024-05-31] MEDS: NOVOLOG FLEXPEN-HIGH RESISTANCE 7 UNITS SC (17:45)
[2024-05-31] MEDS: CRESTOR 20 MG PO (17:45)
[2024-05-31 17:47] LABS: Glucose - Point of Care 292 mg/dl (70-99)
--- NOTE | 2024-05-31 20:00 | PTCARENOTE ---
Assumed care of the patient at 1900. Patient ambulating in halls, OOB in chair, AOx3. NSR on tele, rates 70's, + pulses throughout, trace generalized edema. Lungs clear on RA, satting 94-97%, occasional nonproductive cough. +BS, abdomen round, BM
today, good appetite, tolerating diet. Voiding in the toilet. Midsternal Aquacel, R groin site intact, L arm and RLE incisions CDI METAL WIRE TECHNICIAN with Dermabond. PIV x1 #20 in R hand INT. Call within reach, encouraged patient to make needs known, updated on
POC, in agreement, assessment of needs ongoing.
[2024-05-31] MEDS: SENOKOT-S PO (20:11)
[2024-05-31] MEDS: LANTUS 0.16 UNITS SC (21:44)
[2024-05-31 21:45] LABS: Glucose - Point of Care 220 mg/dl (70-99)
[2024-05-31] MEDS: XANAX 1 MG PO (22:07)
[2024-06-01] VITALS (7 sets, daily range): BP systolic 95–147; BP diastolic 55–80; PULSE 78; O2SAT 97; BMI 38.2
--- NOTE | 2024-06-01 | PTCARENOTE ---
No changes, VSS, patient sleeping between care. Call taveras within reach.
[2024-06-01 03:53] LABS: Glucose - Point of Care 136 mg/dl (70-99)
--- NOTE | 2024-06-01 04:12 | PTCARENOTE ---
Assessment unchanged, patient sleeping between care, no acute issues; labs drawn and sent, VSS.
--- NOTE | 2024-06-01 04:17 | W.PN.CT ---
Today's Communication / Plan
-
-pod #4
-no acute events overnight, maintained NSR.
-HD stable
-weight is up from preop. Diuresed yesterday for 3.5L UO
-K 3.4 this morning, repleted with 60meq KCl
-suspected pericarditis. Echo is normal 05/29
-holding Trazodone while on Amio d/t prolonged Qtc
-monitor rhythm on BB (hx of bradycardia with Toprol, no pw)
-current meds (ASA, Plavix, Crestor, Midodrine, Amio, Norvasc for radial graft, Feosol, Protonix). Will hold BB d/t
Assessment / Plan
-
- mv-CAD - s/p CABG x 3 (JODI to LAD, L RA to OM, GSV to RPDA) by Dr. Albrecht on 05/28/24, pod #4
- Intraop BISHOP: LVEF: 65-70% w/o RWMA, normal RV, mild MR, svgmchh-vq-vhim TR
- HTN/HLD
- Class 2 obesity (BMI 37)
- DM II
- GERD
- OA, s/p b/l TKR
- L RTC repair
- Non-smoker
- Acute postop blood loss anemia - stable without transfusion
- Acute postop atelectasis
- Acute postop brief runs of a-fib/pat on pod #0 - tx with Amio bolus
- Acute postop a-fib 130s on 12 at 7am - tx with Amio bolus and drip
- Acute postop prolonged Qt - improved. Holding Trazodone
- Acute postop hypovolemia with subsequent hypervolemia
- Suspected acute postop pericarditis/+rub
- Acute postop hypotension d/t vasoplegia, requiring Midodrine
- Postop Echo 05/29/24:
Normal biventricular size and systolic function. LVEF 60-65%.
No regional wall motion abnormalities.
No significant valvular disease.
No pericardial effusion.
No change compared to prior TTE on 04/08/2024.
Subjective
Procedure
05/28: CABGx3 (BRAVO to LAD, RA to OM, SVG to RPDA) by Dr. Albrecht
-
Date of Service: June 01, 2024
Objective Data
-
Lab Results
06/01/24 04:30
06/01/24 04:07
PT 16.6 Sec (11.4-14.6) H 05/28/24 14:09
INR 1.29 05/28/24 14:09
APTT 24.0 Sec (23.4-35.0) 05/28/24 14:09
Vital Signs
Vital Signs
Temp Pulse Resp BP Pulse Ox
97.9 F 66 18 123/80 96
06/01/24 03:55 06/01/24 03:54 06/01/24 03:55 06/01/24 03:54 06/01/24 03:55
CT Intake/Output/Weight
05/31/24 05/31/24 06/01/24
06:59 18:59 06:59
Intake Total 246.3 / 1044.4 366.7 / 366.7
Output Total 800 / 1185 3175 / 3575 400 / 3575
Balance -553.7 / -140.6 -2808.3 / -3208.3 -400 / -3208.3
SaO2: 96
Physical Exam
-
General: AOx3
Cardiovascular: Regular rate & rhythm
Respiratory: Decreased Breath Sounds
Sternum: Stable
Incision: Clean, Dry and Intact
Extremities: Edema +1
[2024-06-01 04:29] LABS: Blood Urea Nitrogen 26 mg/dl (7-17); Calcium 7.9 mg/dl (8.4-10.2); Carbon Dioxide 30 mmol/L (22-30); Chloride 101 mmol/L (98-107); Estimated Creatinine Clearance 69 ml/min; Glucose 137 mg/dl (70-99); Magnesium 2.1 mg/dl (1.6-2.3); Potassium 3.4 mmol/L (3.5-5.1); Sodium 139 mmol/L (135-145); eGFR > 60.00
[2024-06-01 04:47] LABS: Hematocrit 28.8 % (37.0-47.0); Hemoglobin 9.9 g/dL (12.0-16.0); Mean Corp Hgb Conc. 34.4 g/dL (33.0-37.0); Mean Corpuscular Hgb 30.3 pg (27.0-31.0); Mean Corpuscular Volume 88.1 fL (81.0-99.0); Mean Platelet Volume 9.6 fL (7.4-10.4); Platelet Count 214 10^3/uL (130-400); Red Blood Cell Count 3.27 10^6/uL (4.20-5.40); Red Cell Dist. Width 12.2 % (11.5-14.5); White Blood Cell Count 10.3 10^3/uL (4.8-10.8)
[2024-06-01] MEDS: KCL 60 MEQ PO (05:52)
[2024-06-01] MEDS: TYLENOL 1000 MG PO ×2 (05:53→13:27)
[2024-06-01] MEDS: ANESTHETIC LOZENGE 1 LOZENGE PO (05:57)
[2024-06-01 07:23] LABS: Glucose - Point of Care 139 mg/dl (70-99)
[2024-06-01] MEDS: NOVOLOG FLEXPEN-HIGH RESISTANCE 1 UNITS SC (07:37)
[2024-06-01] MEDS: NOVOLOG FLEXPEN 8 UNITS SC ×2 (07:37→11:46)
[2024-06-01] MEDS: VITAMIN C 500 MG PO (07:38)
[2024-06-01] MEDS: FEOSOL 325 MG PO (07:38)
[2024-06-01] MEDS: PRANDIN 2 MG PO ×2 (07:38→11:46)
[2024-06-01] MEDS: LOW STRENGTH ASPIRIN 81 MG PO (07:38)
[2024-06-01] MEDS: FARXIGA 10 MG PO (07:38)
[2024-06-01] MEDS: NEURONTIN 100 MG PO (07:38)
[2024-06-01] MEDS: MAGNESIUM OXIDE 500 MG PO (07:38)
[2024-06-01] MEDS: PLAVIX 75 MG PO (07:38)
[2024-06-01] MEDS: PROTONIX 40 MG PO (07:38)
[2024-06-01] MEDS: LOPRESSOR 12.5 MG PO (07:38)
[2024-06-01] MEDS: NORVASC 2.5 MG PO (07:38)
[2024-06-01] MEDS: PACERONE 200 MG PO (07:38)
[2024-06-01] MEDS: MUCINEX 600 MG PO (07:38)
[2024-06-01] MEDS: LIDOCAINE 4% PATCH TOPICAL (07:39)
[2024-06-01] MEDS: SENOKOT-S PO (07:40)
[2024-06-01] MEDS: BACTROBAN 2% OINTMENT 1 APPLIC NASAL (07:41)
--- NOTE | 2024-06-01 07:58 | PTCARENOTE ---
Received pt from shift supervisor melting RN; pt AAOx3 and resting comfortably in bed; NSR on monitor and VSS; PIV x1 patent; Lungs diminished; IS to 1000; positive bowel sounds; pt voiding yellow urine; +1 generalized edema; palpable pulses throughout; all
surgical sites C/D/I; pt ambulating in room; see nursing documentation for further details.
[2024-06-01] MEDS: SENOKOT-S 1 TABLET PO (08:09)
--- NOTE | 2024-06-01 11:20 | PTCARENOTE ---
Pt ambulated hallway and did stairs with cardiac rehab; pt showered self with CHG soap; pvc monitor reapplied; awaiting discharged paperwork.
--- NOTE | 2024-06-01 11:26 | CM ---
Chart reviewed. Patient is independent of ADLS, lives alone in a 2 ST, 3 DIPAK, 0 DME. Patient will be going to her sister house until 06/[address] [place] [address]. Plan is for the patient to go to her sister house with CT
Transitional RN.
[2024-06-01] MEDS: NOVOLOG FLEXPEN-HIGH RESISTANCE 4 UNITS SC (11:46)
[2024-06-01 11:49] LABS: Glucose - Point of Care 215 mg/dl (70-99)
[2024-06-01] MEDS: NSS IV (12:02)
--- NOTE | 2024-06-01 12:42 | PTCARENOTE ---
Assessment unchanged; NSR on monitor and VSS; pt ambulating in room and hallways without difficulties.
--- NOTE | 2024-06-01 14:04 | PN.DE.MGMTRT ---
Insulin Management
- -
06/01/2024 Diabetes Management Consult
Patient admitted for CABG, PMH HTN, asthma, HLD, GERD, anxiety, osteoarthritis, type 2 diabetes. A1C on admission 10.6%, cr .7, eGFr >60.
Patient is awake alert and oriented, able to discuss diabetes management. States she sees Marylou Peña but will see Dr. Murray in July.
POD 4 Transitioned to lantus @ hs and novolog AC with repaglinide 2 mg AC and Farxiga 10 mg daily. Glucose pre meal > 200, will increase AC novolog to 10 units. HS lantus 16 units. Will stop repaglinide now, continue Farxiga 10 mg daily.
RX for Semglee and novolog, farxiga and pen needles in ambulatory orders.
Patients glucose monitor is generic, she has insurance. She can have new meter, test strips and lancets at no cost if she orders through [facility]. Encouraged patient to reach out to for assistance with ordering through [facility]
She is not happy about taking insulin but it is the best regimen at this time. Encouraged to make an appt. with her primary and Marylou but she 'does not like MARYLOU'
Encouraged her to make an appointment with someone in that office.
Diabetes History
- -
Type of Diabetes: 2 requiring insulin
Pre-Admission Diabetes Regimen
06/01/24
04:07
Creatinine 1.0
Lab Results
Hemoglobin A1c 10.6 % (4.0-5.6) H 05/26/24 08:39
Insulin Pump Settings
IP Diabetes Regimen
05/31/24 05/31/24 06/01/24
17:37 21:43 03:52
Glucose
POC Glucose 292 H 220 H 136 H
06/01/24 06/01/24 06/01/24
04:07 07:20 11:44
Glucose 137 H
POC Glucose 139 H 215 H
Meal type: Lunch
Meal type: Breakfast
Amount consumed: 100%
Amount consumed: 100%
Patient Education
--- NOTE | 2024-06-01 16:08 | PTCARENOTE ---
Patient discharged home - taken by wheelchair to sister's car. Patient states full understanding of discharge instructions and has no further questions at this time. Importance of taking medications as prescribed stressed by RN. Telemetry and PIV
access removed. VSS. Patient belongings taken with patient and sister.
--- NOTE | 2024-06-01 17:27 | W.DCSUMMARY ---
Discharge Summary
Discharge Data
Date of Admission: 05/28/24
Date of Discharge: 06/01/24
Total time spent discharging patient (in min): 45
-
Pending Results: No
Hospital Course
Primary care physician:
Dr. Cullen Vazquez
Outpatient agriscience instructor:
Dr. Hamm
Inpatient consultants:
CBC, aircraft machinist, DM management MULTIPLE DRUM SANDER HELPER
Procedures:
1. Coronary artery bypass x3
Primary Diagnosis:
1. Multivessel coronary artery disease
Secondary Diagnoses:
1. Hypertension
2. Type 2 diabetes
3. Hyperlipidemia
4. Postoperative atrial fibrillation
5. Postoperative fluid overload
6. Osteoarthritis
HPI: 59-year-old female with known coronary disease presented electively on 05/28 for coronary artery bypass with Dr. Albrecht.
Hospital course:
Patient was electively admitted on 05/28 for a coronary artery bypass with Dr. Albrecht. Postoperatively she returned to the CVICU on Levophed, insulin, Precedex, and Cardene infusions. Patient had a prolonged QTc so amiodarone was initially held
and Precedex was weaned off and patient was extubated by 1710. On 12 postoperative day 1 Levophed was weaned off Norvasc was started and Cardene was weaned off for radial artery spasm protection. Patient was also started on Toradol given her
pericardial rub. T BISHOP did not show any wall motion abnormalities. She was also started on midodrine later in the day for low blood pressures. On 05/30 postoperative day #2, patient converted into atrial fibrillation with a rapid ventricular
response with heart rate in the 140s. She was started on an amiodarone bolus and infusion. Shortly after medications patient converted back into sinus rhythm. Chest tubes and Rhoades was removed later in the day. To transition off insulin infusion
patient was started on Farxiga, sliding scale insulin, and Lantus at night. On 05/31 postoperative day #3, patient's Cordis was removed. Started on Prandin and a high dose sliding scale insulin. She was diuresed with 40 of Lasix twice daily with
adequate urine output. On 06/01 postoperative day 4, her insulin dose was adjusted and she was deemed stable for discharge home. 2 view chest x-ray was stable.
Home medication changes:
See below
Discharge Plan
-
Patient Disposition: Home (Routine Discharge)
Discharge Diagnosis/Procedures: CABG x3 and sternal plating
Condition: Good
Diet: 2 Gram Sodium
Activity: No strenuous activity
Driving Restrictions: Not until seen by your Dr
Bathing Restrictions: OK to Shower
Other Services: Cardiac Rehab
Specialty Instructions: Weigh Daily- Call MD for wt gain/loss 3 lbs overnight/5 lbs in 1 week
Activity Restrictions/Additional Instructions:
ACTIVITY:
-No strenuous activity: no heavy lifting, pushing, pulling anything over 15 pounds for one month
-continue to use stairs as tolerated
DRIVING RESTRICTIONS:
-No driving for one month or until approved by your surgeon
WOUND CARE:
-Shower daily. Use soap & water.
-No lotions, creams or powders on incision area.
DIET:
-continue a low fat/low cholesterol diet.
-IF you are diabetic, continue carb controlled diet.
CARDIAC REHAB:
-Please make appointment to start in 5-6 weeks with your local hospital program. (See Cardiac Rehabilitation Discharge Booklet).
SPECIALTY INSTRUCTIONS:
-Weigh yourself daily. Call your physician for any weight gain/loss of 3 lbs overnight or 5 lbs in one week.
-REPORT any clicking noise or uneven appearance of your sternum to your surgeon immediately.
-If you smoke, you are instructed to quit. The [place] smoking hotline phone number is [phone]
Referrals:
CT Transitional Care Nurse [Outside]
(
The Cardiothoracic Transitional Care Nurse will call you to set up a visit in 1-2 days.)
[facility] [Outside] - 07/09/24 1:00 pm
(Cardiac Rehab Orientation appointment is on 07/09/24 at 1pm
The Cardiac Rehab gym is located on the first floor of the [facility].)
Morenita Pimentel CRNP [Specified Professional Personl] - 07/08/24 10:00 am
Cullen Vazquez DO [Family Provider] -
Julio Albrecht MD [Active] - 06/30/24 3:30 pm
Additional Discharge Medication Instructions: please take 200mg twice a day for 14 days and then 200mg daily
Prescriptions:
New
cyclobenzaprine 10 mg Tablet
5 mg PO Q8HPRN PRN (Reason: muscle spasm) Qty: 30 0RF
acetaminophen 325 mg Tablet
650 mg PO Q4HPRN PRN (Reason: mild pain,headache,temp >101F ) Qty: 0 0RF
amiodarone 200 mg Tablet
200 mg PO BID Qty: 90 0RF
Rx Instructions:
please take 200mg twice a day for 14 days and then 200mg daily
amlodipine 2.5 mg Tablet
2.5 mg PO DAILY Qty: 90 3RF
clopidogrel 75 mg Tablet
75 mg PO DAILY Qty: 90 0RF
aspirin 81 mg Tablet,Chewable
81 mg PO DAILY Qty: 0 0RF
gabapentin 100 mg Capsule
100 mg PO TID Qty: 30 0RF
oxycodone 5 mg Tablet
2.5 mg PO Q6HPRN PRN (Reason: severe pain) Qty: 10 0RF
metoprolol tartrate 25 mg Tablet
12.5 mg PO Q12 Qty: 90 1RF
pantoprazole 40 mg Tablet,Delayed Release (Dr/Ec)
40 mg PO DAILY Qty: 90 3RF
guaifenesin 600 mg Tablet Extended Release 12hr
600 mg PO Q12 Qty: 0 0RF
insulin aspart U-100 [Novolog FlexPen U-100 Insulin] 100 unit/mL (3 mL) Insulin Pen
10 unit SC AC Qty: 5 0RF
(DME) pen needle, diabetic [BD Ultra-Fine Lisa Pen Needle] 32 gauge x 5' Needle
Qty: 200 0RF
Rx Instructions:
AC & HS As Directed
insulin glargine-yfgn [Semglee(insulin glarg-yfgn)Pen] 100 unit/mL (3 mL) Insulin Pen
16 unit SC QPM Qty: 5 0RF
dapagliflozin propanediol [Farxiga] 10 mg Tablet
10 mg PO DAILY Qty: 30 0RF
Continued
rosuvastatin 20 MG tablet
20 mg PO QPM
glipizide 5 MG tablet
15 mg PO DAILY
trazodone 100 MG tablet
100 mg PO HS
cyanocobalamin (vitamin B-12) 1,000 MCG tablet
1,000 mcg PO MO
cetirizine 10 MG tablet
10 mg PO DAILY
biotin 10,000 MCG capsule
10,000 mcg PO DAILY
cholecalciferol (vitamin D3) 1,000 UNITS tablet
3,000 units PO DAILY
Centrum Silver Women 1 EACH tablet
1 ea PO DAILY
rjvqx-0z-bnt-epa-fish oil 1 EACH capsule,delayed release(DR/EC)
1 ea PO Q48H Qty: 0 0RF
Rx Instructions:
Resume in 1 week.
psyllium husk [Daily Fiber] 0.4 gram Capsule
0.4 g PO AC
Hair, Skin and Nails (biotin) 10,000 mcg Tablet,Chewable
6,000 mcg PO DAILY
Sleep3 10-200-50 mg Tablet,Ir,Delayed Rel,Biphasic
1 tab PO HS
alprazolam 1 mg Tablet
1 mg PO HS
(DME) lancets Misc
See Rx Instructions .ROUTE Qty: 100 5RF
Rx Instructions:
As directed
Rybelsus 14 mg Tablet
14 mg PO DAILY
Discontinued
repaglinide 0.5 MG tablet
0.5 mg PO MEALS
valsartan 80 mg Tablet
80 mg PO DAILY
nitroglycerin 0.4 mg tablet, sublingual
0.4 mg sublingual [id number] PRN (Reason: chest pain) Qty: 25 5RF
Discharge Orders:
Discharge Patient (As Directed); Ordered 06/01/24
Ordered By: Robyn Buckley
Care Plan Goals
Care Plan Goals:
Problem: Readiness for enhanced knowledge related to diagnosis and treatment plan
Goal: Understand your diagnosis and treatment plan needs, including medications if applicable.
Instructions: Know your diagnosis, underlying causes and treatment plan options, including medications if applicable. Consult with your health care team to learn about your diagnosis and treatment plan, including medications if applicable.
Discharge Date and Time
Discharge Date/Time: 06/01/24 16:10
Print Language: KOSOVAN
== END 2024-06-01 16:10 | disposition home or self-care (01) | DRG 236 ==
LOC: CVICU 04:57
PROVIDERS: Anesthesiology; Nurse Practitioner; Physician Assistant Medical; ADMITTING PHYSICIAN Thoracic Surgery (Cardiothoracic Vascular Surgery); CONSULT PHYSICIAN Internal Medicine Critical Care Medicine; FAMILY PHYSICIAN Family Medicine
PROC: 02100ZC Bypass Coronary Artery, One Artery from Thoracic Artery, Open Approach (ICD-10-PCS; 2024-05-28)
PROC: 021009W Bypass Coronary Artery, One Artery from Aorta with Autologous Venous Tissue, Open Approach (ICD-10-PCS; 2024-05-28)
PROC: B24BZZ4 Ultrasonography of Heart with Aorta, Transesophageal (ICD-10-PCS; 2024-05-28)
PROC: 02100AW Bypass Coronary Artery, One Artery from Aorta with Autologous Arterial Tissue, Open Approach (ICD-10-PCS; 2024-05-28)
PROC: 5A1221Z Performance of Cardiac Output, Continuous (ICD-10-PCS; 2024-05-28)
PROC: 03BC4ZZ Excision of Left Radial Artery, Percutaneous Endoscopic Approach (ICD-10-PCS; 2024-05-28)
PROC: 06BP4ZZ Excision of Right Saphenous Vein, Percutaneous Endoscopic Approach (ICD-10-PCS; 2024-05-28)
DX: I25.10 Atherosclerotic heart disease of native coronary artery without angina pectoris (principal); D62 Acute posthemorrhagic anemia; J98.11 Atelectasis; I30.9 Acute pericarditis, unspecified; Q21.12 Patent foramen ovale; I10 Essential (primary) hypertension; E11.9 Type 2 diabetes mellitus without complications; E78.5 Hyperlipidemia, unspecified; M19.90 Unspecified osteoarthritis, unspecified site; I48.91 Unspecified atrial fibrillation; I95.81 Postprocedural hypotension; E87.70 Fluid overload, unspecified; E66.812 Obesity, class 2; J45.909 Unspecified asthma, uncomplicated; K21.9 Gastro-esophageal reflux disease without esophagitis; E86.1 Hypovolemia; Z68.38 Body mass index [BMI] 38.0-38.9, adult; Z79.4 Long term (current) use of insulin; Z79.899 Other long term (current) drug therapy
CPT/HCPCS: 36415; 71045; 71046; 80048; 80053; 81003; 82248; 82330; 82565; 82805; 82947; 82962; 83036; 83735; 84132; 84302; 84520; 85014; 85018; 85025; 85027; 85049; 85610; 85730; 86850; 86900; 86901; 86920; 87070; 93005; 93306; 93312; 93320; 93325; 93880; 93923; 93930; 94002; 94010; 94060; P9047

== ENCOUNTER → 2024-06-18 13:50 | Outpatient (REF) | payer BC, SELFPAY | LOC: HWRAD 13:50 | PROVIDERS: ATTENDING PHYSICIAN Thoracic Surgery (Cardiothoracic Vascular Surgery); FAMILY PHYSICIAN Family Medicine | DX: Z95.1 Presence of aortocoronary bypass graft (principal) | CPT/HCPCS: 71046 ==

== ENCOUNTER 2024-07-17 09:48 | Outpatient (RCR) | payer BC, SELFPAY ==
[2024-07-09 14:17] LABS: Glucose - Point of Care 101 mg/dl (70-99)
[2024-07-09 15:01] LABS: Glucose - Point of Care 141 mg/dl (70-99)
[2024-07-13 13:10] LABS: Glucose - Point of Care 210 mg/dl (70-99)
[2024-07-13 14:05] LABS: Glucose - Point of Care 183 mg/dl (70-99)
[2024-07-15 09:21] LABS: Glucose - Point of Care 154 mg/dl (70-99)
[2024-07-15 10:18] LABS: Glucose - Point of Care 135 mg/dl (70-99)
[2024-07-17 09:25] LABS: Glucose - Point of Care 179 mg/dl (70-99)
[2024-07-17 10:22] LABS: Glucose - Point of Care 183 mg/dl (70-99)
== END 2024-07-17 23:59 | disposition home or self-care (01) ==
LOC: CRHB 09:48
PROVIDERS: ATTENDING PHYSICIAN Internal Medicine; FAMILY PHYSICIAN Family Medicine
DX: I25.10 Atherosclerotic heart disease of native coronary artery without angina pectoris (principal); Z95.1 Presence of aortocoronary bypass graft
CPT/HCPCS: 82962; 93797; 93798

== ENCOUNTER 2024-08-05 16:55 | Outpatient (RCR) | payer BC, SELFPAY ==
[2024-07-20 09:30] LABS: Glucose - Point of Care 193 mg/dl (70-99)
[2024-07-20 10:19] LABS: Glucose - Point of Care 142 mg/dl (70-99)
[2024-07-22 09:25] LABS: Glucose - Point of Care 141 mg/dl (70-99)
[2024-07-22 10:36] LABS: Glucose - Point of Care 74 mg/dl (70-99)
[2024-07-24 16:27] LABS: Glucose - Point of Care 144 mg/dl (70-99)
[2024-07-24 17:44] LABS: Glucose - Point of Care 143 mg/dl (70-99)
[2024-07-27 17:15] LABS: Glucose - Point of Care 112 mg/dl (70-99)
[2024-07-27 18:07] LABS: Glucose - Point of Care 122 mg/dl (70-99)
[2024-07-31 15:53] LABS: Glucose - Point of Care 166 mg/dl (70-99)
[2024-07-31 16:42] LABS: Glucose - Point of Care 130 mg/dl (70-99)
[2024-08-03 16:26] LABS: Glucose - Point of Care 119 mg/dl (70-99)
[2024-08-03 17:49] LABS: Glucose - Point of Care 128 mg/dl (70-99)
[2024-08-05 16:27] LABS: Glucose - Point of Care 286 mg/dl (70-99)
[2024-08-05 17:49] LABS: Glucose - Point of Care 279 mg/dl (70-99)
== END 2024-08-05 23:59 | disposition home or self-care (01) ==
LOC: CRHB 16:55
PROVIDERS: ATTENDING PHYSICIAN Internal Medicine; FAMILY PHYSICIAN Family Medicine
DX: I25.10 Atherosclerotic heart disease of native coronary artery without angina pectoris (principal); Z95.1 Presence of aortocoronary bypass graft
CPT/HCPCS: 82962; 93797; 93798

== ENCOUNTER 2024-09-14 17:00 | Outpatient (RCR) | payer BC, SELFPAY ==
[2024-08-19 16:21] LABS: Glucose - Point of Care 134 mg/dl (70-99)
[2024-08-19 17:41] LABS: Glucose - Point of Care 120 mg/dl (70-99)
[2024-08-21 16:18] LABS: Glucose - Point of Care 117 mg/dl (70-99)
[2024-08-21 17:31] LABS: Glucose - Point of Care 112 mg/dl (70-99)
[2024-08-24 16:19] LABS: Glucose - Point of Care 152 mg/dl (70-99)
[2024-08-24 17:27] LABS: Glucose - Point of Care 131 mg/dl (70-99)
[2024-08-28 16:20] LABS: Glucose - Point of Care 153 mg/dl (70-99)
[2024-08-31 16:17] LABS: Glucose - Point of Care 123 mg/dl (70-99)
[2024-08-31 17:46] LABS: Glucose - Point of Care 106 mg/dl (70-99)
[2024-09-04 16:26] LABS: Glucose - Point of Care 120 mg/dl (70-99)
[2024-09-04 17:40] LABS: Glucose - Point of Care 77 mg/dl (70-99)
[2024-09-07 16:21] LABS: Glucose - Point of Care 119 mg/dl (70-99)
[2024-09-07 17:52] LABS: Glucose - Point of Care 86 mg/dl (70-99)
[2024-09-09 16:22] LABS: Glucose - Point of Care 120 mg/dl (70-99)
[2024-09-09 17:34] LABS: Glucose - Point of Care 100 mg/dl (70-99)
[2024-09-11 16:17] LABS: Glucose - Point of Care 128 mg/dl (70-99)
[2024-09-11 17:26] LABS: Glucose - Point of Care 112 mg/dl (70-99)
[2024-09-14 16:18] LABS: Glucose - Point of Care 129 mg/dl (70-99)
[2024-09-14 17:44] LABS: Glucose - Point of Care 106 mg/dl (70-99)
== END 2024-09-14 23:59 | disposition home or self-care (01) ==
LOC: CRHB 17:00
PROVIDERS: ATTENDING PHYSICIAN Internal Medicine; FAMILY PHYSICIAN Family Medicine
DX: I25.10 Atherosclerotic heart disease of native coronary artery without angina pectoris (principal); Z95.1 Presence of aortocoronary bypass graft
CPT/HCPCS: 82962; 93797; 93798

== ENCOUNTER → 2024-10-07 06:52 | Outpatient (REF) | payer BC, SELFPAY ==
[2024-10-07 10:06] LABS: Hematocrit 39.5 % (37.0-47.0); Hemoglobin 13.1 g/dL (12.0-16.0); Mean Corp Hgb Conc. 33.2 g/dL (33.0-37.0); Mean Corpuscular Hgb 27.8 pg (27.0-31.0); Mean Corpuscular Volume 83.7 fL (81.0-99.0); Mean Platelet Volume 9.6 fL (7.4-10.4); Platelet Count 259 10^3/uL (130-400); Red Blood Cell Count 4.72 10^6/uL (4.20-5.40); Red Cell Dist. Width 15.7 % (11.5-14.5); White Blood Cell Count 7.8 10^3/uL (4.8-10.8)
[2024-10-07 10:37] LABS: ALT (SGPT) 17 U/L (0-35); AST (SGOT) 21 U/L (14-36); Albumin 4.4 g/dl (3.5-5.0); Alkaline Phosphatase 69 U/L (38-126); Blood Urea Nitrogen 14 mg/dl (7-17); Calcium 8.9 mg/dl (8.4-10.2); Carbon Dioxide 23 mmol/L (22-30); Chloride 108 mmol/L (98-107); Glucose 119 mg/dl (70-99); HDL Cholesterol 57 mg/dl; LDL Cholesterol, Calculated 37 mg/dl; Potassium 4.4 mmol/L (3.5-5.1); Sodium 143 mmol/L (135-145); Total Bilirubin 0.8 mg/dl (0.2-1.3); Total Cholesterol 110 mg/dl (50-199); Total Protein 6.8 g/dl (6.3-8.2); Triglyceride 84 mg/dl (10-149); Very Low Density Lipoprotein 16 mg/dl (0-30); eGFR > 60.00
[2024-10-07 10:58] LABS: Glycohemoglobin (HgbA1c) 7.4 % (4.0-5.6)
== END ==
LOC: HWLAB 06:52
PROVIDERS: ATTENDING PHYSICIAN Physician Assistant; FAMILY PHYSICIAN Family Medicine; REFERRING PHYSICIAN Nurse Practitioner
DX: E11.65 Type 2 diabetes mellitus with hyperglycemia (principal); E78.2 Mixed hyperlipidemia; I25.10 Atherosclerotic heart disease of native coronary artery without angina pectoris
CPT/HCPCS: 36415; 80053; 80061; 83036; 85027

== ENCOUNTER 2024-10-07 16:52 | Outpatient (RCR) | payer BC, SELFPAY ==
[2024-09-16 16:19] LABS: Glucose - Point of Care 109 mg/dl (70-99)
[2024-09-16 17:47] LABS: Glucose - Point of Care 91 mg/dl (70-99)
[2024-09-21 16:19] LABS: Glucose - Point of Care 127 mg/dl (70-99)
[2024-09-21 17:43] LABS: Glucose - Point of Care 128 mg/dl (70-99)
== END 2024-10-07 17:26 | disposition home or self-care (01) ==
LOC: CRHB 16:52
PROVIDERS: ATTENDING PHYSICIAN Internal Medicine; FAMILY PHYSICIAN Family Medicine
DX: I25.10 Atherosclerotic heart disease of native coronary artery without angina pectoris (principal); Z95.1 Presence of aortocoronary bypass graft
CPT/HCPCS: 82962; 93797; 93798

== ENCOUNTER → 2024-10-13 13:26 | Outpatient (REF) | payer BC, SELFPAY | LOC: HWRAD 13:26 | PROVIDERS: ATTENDING PHYSICIAN Family Medicine | DX: N95.0 Postmenopausal bleeding (principal) | CPT/HCPCS: 76830; 76856 ==

== ENCOUNTER → 2024-10-22 17:13 | Outpatient (REF) | payer BC, SELFPAY ==
[2024-10-29 00:54] LABS: HPV, High Risk Not Detected; HPV, High Risk Source Cervical
== END ==
LOC: CPAP 17:13
PROVIDERS: ATTENDING PHYSICIAN Student in an Organized Health Care Education/Training Program
DX: Z01.419 Encounter for gynecological examination (general) (routine) without abnormal findings (principal)
CPT/HCPCS: 87624

== ENCOUNTER 2024-12-08 06:23 | Day surgery (SDC) | payer BC, SELFPAY ==
[2024-12-08 10:42] VITALS: BMI 37.2
[2024-12-08 10:47] VITALS: BMI 37.2
[2024-12-08 11:03] VITALS: BP 125/74
[2024-12-08 11:16] LABS: Glucose - Point of Care 161 mg/dl (70-99)
[2024-12-08 12:53] VITALS: BP 124/69
[2024-12-08 13:00] VITALS: BP 135/72
[2024-12-08 13:15] VITALS: BP 124/68
== END 2024-12-08 13:30 | disposition home or self-care (01) ==
LOC: GI 06:23
PROVIDERS: ATTENDING PHYSICIAN Internal Medicine
DX: Z12.11 Encounter for screening for malignant neoplasm of colon (principal); K64.8 Other hemorrhoids; K57.30 Diverticulosis of large intestine without perforation or abscess without bleeding; K64.4 Residual hemorrhoidal skin tags; K62.89 Other specified diseases of anus and rectum; D12.3 Benign neoplasm of transverse colon; K62.1 Rectal polyp; Z80.0 Family history of malignant neoplasm of digestive organs; Z86.0100 Personal history of colon polyps, unspecified
CPT/HCPCS: 45385; 45380; 88305; 82962

== ENCOUNTER → 2024-12-28 15:55 | Outpatient (REF) | payer BC, SELFPAY | LOC: HWRCS 15:55 | PROVIDERS: ATTENDING PHYSICIAN Internal Medicine; FAMILY PHYSICIAN Family Medicine | DX: I25.10 Atherosclerotic heart disease of native coronary artery without angina pectoris (principal); I49.3 Ventricular premature depolarization; Z95.1 Presence of aortocoronary bypass graft | CPT/HCPCS: 93306 ==

== ENCOUNTER → 2025-02-01 07:06 | Outpatient (REF) | payer BC, SELFPAY ==
[2025-02-01 09:33] LABS: Hematocrit 39.8 % (37.0-47.0); Hemoglobin 13.5 g/dL (12.0-16.0); Mean Corp Hgb Conc. 33.9 g/dL (33.0-37.0); Mean Corpuscular Volume 89.6 fL (81.0-99.0); Nucleated Red Blood Cells % 0 %; Platelet Count 295 10^3/uL (130-400); Red Cell Dist. Width 11.9 % (11.5-14.5)
[2025-02-01 09:56] LABS: ALT (SGPT) 20 U/L (0-35); AST (SGOT) 22 U/L (14-36); Albumin 4.3 g/dl (3.5-5.0); Alkaline Phosphatase 80 U/L (38-126); Blood Urea Nitrogen 16 mg/dl (7-17); Calcium 9.0 mg/dl (8.4-10.2); Carbon Dioxide 24 mmol/L (22-30); Chloride 106 mmol/L (98-107); Glucose 219 mg/dl (70-99); HDL Cholesterol 65 mg/dl; LDL Cholesterol, Calculated 43 mg/dl; Potassium 4.8 mmol/L (3.5-5.1); Sodium 139 mmol/L (135-145); Total Protein 7.0 g/dl (6.3-8.2); Very Low Density Lipoprotein 22 mg/dl (0-30); eGFR > 60.00
[2025-02-01 10:12] LABS: Microalb - Urine Creatinine 80.000 mg/dl
[2025-02-01 10:14] LABS: Microalbumin, Random Urine 0.9 mg/dl (0.6-1.7)
[2025-02-01 11:40] LABS: Glycohemoglobin (HgbA1c) 8.9 % (4.0-5.6)
== END ==
LOC: HWLAB 07:06
PROVIDERS: ATTENDING PHYSICIAN Family Medicine
DX: E78.5 Hyperlipidemia, unspecified (principal); E11.65 Type 2 diabetes mellitus with hyperglycemia; E66.9 Obesity, unspecified; I10 Essential (primary) hypertension
CPT/HCPCS: 36415; 80053; 80061; 82043; 82570; 83036; 84439; 84443; 85025

== ENCOUNTER → 2025-02-09 07:02 | Outpatient (REF) | payer BC, SELFPAY | LOC: HWLAB 07:02 | PROVIDERS: ATTENDING PHYSICIAN Family Medicine; REFERRING PHYSICIAN Internal Medicine | DX: R60.9 Edema, unspecified (principal) | CPT/HCPCS: 36415; 83880 ==

== ENCOUNTER → 2025-03-05 06:59 | Outpatient (REF) | payer BC, SELFPAY ==
[2025-03-05 12:07] LABS: Iron 103 ug/dl (37-170)
[2025-03-05 12:16] LABS: Total Iron Binding Capacity 346 ug/dl (265-497)
[2025-03-05 18:35] LABS: Vitamin D, 25-OH*** 53.7 ng/mL (30-80)
[2025-03-05 18:46] LABS: Ferritin 55.2 ng/ml (11.1-264.0)
[2025-03-05 19:25] LABS: Folate > 20.0 ng/ml (2.76-20); Vitamin B12 998 pg/ml (239-931)
== END ==
LOC: HWLAB 06:59
PROVIDERS: ATTENDING PHYSICIAN Family Medicine
DX: L65.9 Nonscarring hair loss, unspecified (principal)
CPT/HCPCS: 36415; 82306; 82607; 82728; 82746; 83540; 83550

== ENCOUNTER → 2025-03-23 07:04 | Outpatient (REF) | payer BC, SELFPAY ==
[2025-03-23 10:03] LABS: Hematocrit 36.5 % (37.0-47.0); Hemoglobin 12.8 g/dL (12.0-16.0); Mean Corp Hgb Conc. 35.1 g/dL (33.0-37.0); Mean Corpuscular Volume 88.6 fL (81.0-99.0); Platelet Count 260 10^3/uL (130-400); Red Cell Dist. Width 12.5 % (11.5-14.5)
[2025-03-23 10:16] LABS: ALT (SGPT) 24 U/L (0-35); AST (SGOT) 23 U/L (14-36); Albumin 4.0 g/dl (3.5-5.0); Alkaline Phosphatase 80 U/L (38-126); Blood Urea Nitrogen 7 mg/dl (7-17); Calcium 8.5 mg/dl (8.4-10.2); Carbon Dioxide 27 mmol/L (22-30); Chloride 105 mmol/L (98-107); Glucose 219 mg/dl (70-99); HDL Cholesterol 81 mg/dl; LDL Cholesterol, Calculated 46 mg/dl; Potassium 4.4 mmol/L (3.5-5.1); Sodium 138 mmol/L (135-145); Total Protein 6.6 g/dl (6.3-8.2); Very Low Density Lipoprotein 25 mg/dl (0-30); eGFR > 60.00
[2025-03-23 10:30] LABS: Microalb - Urine Creatinine 118.400 mg/dl
[2025-03-23 10:31] LABS: Free T3 4.52 pg/ml (2.77-5.27)
[2025-03-23 10:35] LABS: Microalbumin, Random Urine 2.2 mg/dl (0.6-1.7)
[2025-03-23 10:44] LABS: TSH 1.10 uIU/ml (0.47-4.68)
[2025-03-23 11:25] LABS: Glycohemoglobin (HgbA1c) 9.2 % (4.0-5.6)
[2025-03-25 00:49] LABS: Thyroid Stim. Immunoglobulin <0.10 IU/L (<=0.54)
== END ==
LOC: HWLAB 07:04
PROVIDERS: ATTENDING PHYSICIAN Nurse Practitioner Family; FAMILY PHYSICIAN Family Medicine
DX: E11.65 Type 2 diabetes mellitus with hyperglycemia (principal); R94.6 Abnormal results of thyroid function studies
CPT/HCPCS: 36415; 80053; 80061; 82043; 82570; 83036; 83520; 84439; 84443; 84445; 84481; 85027

== ENCOUNTER → 2025-03-24 06:47 | Outpatient (REF) | payer BC, SELFPAY | LOC: HWWDC 06:47 | PROVIDERS: ATTENDING PHYSICIAN Family Medicine; REFERRING PHYSICIAN Obstetrics & Gynecology | DX: Z12.31 Encounter for screening mammogram for malignant neoplasm of breast (principal) | CPT/HCPCS: 77063; 77067 ==

== ENCOUNTER → 2025-03-25 15:15 | Outpatient (REF) | payer BC, SELFPAY | LOC: HWRAD 15:15 | PROVIDERS: ATTENDING PHYSICIAN Nurse Practitioner Family; FAMILY PHYSICIAN Family Medicine | DX: R94.6 Abnormal results of thyroid function studies (principal) | CPT/HCPCS: 76536 ==

== ENCOUNTER → 2025-03-31 06:51 | Outpatient (REF) | payer BC, SELFPAY ==
[2025-03-31 11:01] LABS: FSH 12.1 mIU/ml
== END ==
LOC: HWLAB 06:51
PROVIDERS: ATTENDING PHYSICIAN Nurse Practitioner Family; FAMILY PHYSICIAN Family Medicine
DX: F41.9 Anxiety disorder, unspecified (principal); E11.65 Type 2 diabetes mellitus with hyperglycemia
CPT/HCPCS: 36415; 82670; 83001; 83002

== ENCOUNTER → 2025-04-05 07:00 | Outpatient (REF) | payer BC, SELFPAY | LOC: HWLAB 07:00 | PROVIDERS: ATTENDING PHYSICIAN Nurse Practitioner Family; FAMILY PHYSICIAN Family Medicine | DX: F41.9 Anxiety disorder, unspecified (principal); E11.65 Type 2 diabetes mellitus with hyperglycemia | CPT/HCPCS: 81050; 82530 ==

== ENCOUNTER → 2025-04-16 12:01 | Outpatient (REF) | payer BC, SELFPAY | LOC: HWRAD 12:01 | PROVIDERS: ATTENDING PHYSICIAN Physician Assistant Medical | DX: Z20.828 Contact with and (suspected) exposure to other viral communicable diseases (principal) | CPT/HCPCS: 71046 ==

== ENCOUNTER → 2025-06-04 07:41 | Outpatient (REF) | payer BC, SELFPAY | LOC: HWRCS 07:41 | PROVIDERS: ATTENDING PHYSICIAN Nurse Practitioner; FAMILY PHYSICIAN Family Medicine | DX: I25.10 Atherosclerotic heart disease of native coronary artery without angina pectoris (principal) | CPT/HCPCS: 78452; 93017; A9500; J2785 ==

== ENCOUNTER → 2025-06-07 07:12 | Outpatient (REF) | payer BC, SELFPAY ==
[2025-06-07 09:48] LABS: Hematocrit 39.5 % (37.0-47.0); Hemoglobin 13.7 g/dL (12.0-16.0); Mean Corp Hgb Conc. 34.7 g/dL (33.0-37.0); Mean Corpuscular Volume 89.6 fL (81.0-99.0); Platelet Count 278 10^3/uL (130-400); Red Cell Dist. Width 11.6 % (11.5-14.5)
[2025-06-07 10:46] LABS: Blood Urea Nitrogen 21 mg/dl (7-17); Glucose 420 mg/dl (70-99); Sodium 134 mmol/L (135-145); eGFR > 60.00
[2025-06-07 10:47] LABS: ALT (SGPT) 19 U/L (0-35); AST (SGOT) 19 U/L (14-36); Albumin 4.2 g/dl (3.5-5.0); Alkaline Phosphatase 82 U/L (38-126); Calcium 8.8 mg/dl (8.4-10.2); Carbon Dioxide 23 mmol/L (22-30); Chloride 103 mmol/L (98-107); HDL Cholesterol 89 mg/dl; LDL Cholesterol, Calculated 42 mg/dl; Potassium 4.4 mmol/L (3.5-5.1); Total Protein 6.9 g/dl (6.3-8.2); Very Low Density Lipoprotein 31 mg/dl (0-30)
[2025-06-07 11:29] LABS: Microalbumin, Random Urine < 0.6 mg/dl (0.6-1.7)
[2025-06-07 11:41] LABS: Microalb - Urine Creatinine 31.100 mg/dl
[2025-06-07 12:36] LABS: Glycohemoglobin (HgbA1c) 12.7 % (4.0-5.9)
== END ==
LOC: HWLAB 07:12
PROVIDERS: ATTENDING PHYSICIAN Nurse Practitioner; FAMILY PHYSICIAN Family Medicine; REFERRING PHYSICIAN Nurse Practitioner Family
DX: R06.09 Other forms of dyspnea (principal); E11.65 Type 2 diabetes mellitus with hyperglycemia; E11.9 Type 2 diabetes mellitus without complications; R94.6 Abnormal results of thyroid function studies
CPT/HCPCS: 36415; 80053; 80061; 82043; 82570; 83036; 83880; 85027